=== PATIENT | female | born 1950 | race Caucasian/White ===

== ENCOUNTER 2018-03-26 11:51 | Outpatient (REF) | payer MEDICARE, BC, SELFPAY | END 2018-03-26 12:11 | LOC: NCHCN 11:51 | PROVIDERS: Visit Provider Internal Medicine | DX: I10 Essential (primary) hypertension (principal); E11.9 Type 2 diabetes mellitus without complications; E03.9 Hypothyroidism, unspecified; E78.5 Hyperlipidemia, unspecified; Z53.8 Procedure and treatment not carried out for other reasons | CPT/HCPCS: 80048; 80061; 83721; 82043; 82570; 83036; 84443 ==

== ENCOUNTER 2018-03-31 13:08 | Outpatient (REF) | payer MEDICARE, BC, SELFPAY ==
[2018-03-31 22:20] LABS: COMMENT (LAB VIEW ONLY) 314.45 mg/dL
== END 2018-03-31 13:28 ==
LOC: NCHCN 13:08
PROVIDERS: Visit Provider Internal Medicine
DX: E11.9 Type 2 diabetes mellitus without complications (principal); I10 Essential (primary) hypertension; E78.5 Hyperlipidemia, unspecified
CPT/HCPCS: 80048; 80061; 83721; 82043; 82570; 83036; 84443

== ENCOUNTER 2018-04-03 21:20 | Outpatient (REF) | payer MEDICARE, BC, SELFPAY ==
[2018-04-03 22:11] LABS: Anion Gap 6.8 mmol/L (3-11); BUN 22 mg/dL (7-18); CO2 28.2 mmol/L (21.0-32.0); CREATININE 1.47 mg/dL (0.55-1.02); Calcium 9.5 mg/dL (8.5-10.1); Chloride 101 mmol/L (98-107); Cholesterol 167 mg/dL (50-200); Estimated GFR 35.24 (mL/min/1.73m2); Glucose 212 mg/dL (70-100); HDL Cholesterol 53 mg/dL (40-60); LDL CHOLESTEROL 93 mg/dL (<100); Sodium 136 mmol/L (136-145); TSH 1.86 uIU/mL (0.358-3.74); Triglyceride 89 mg/dL (30-150)
== END 2018-04-03 21:40 ==
LOC: NCHCN 21:20
PROVIDERS: Visit Provider Internal Medicine
DX: I10 Essential (primary) hypertension (principal); E11.9 Type 2 diabetes mellitus without complications; E03.9 Hypothyroidism, unspecified; E78.5 Hyperlipidemia, unspecified
CPT/HCPCS: 80048; 80061; 83721; 84443

== ENCOUNTER 2019-12-25 19:36 | Outpatient (REF) | payer MEDICARE, BC, SELFPAY ==
[2019-12-25 22:13] LABS: Anion Gap 3.2 mmol/L (3-11); BUN 17 mg/dL (7-18); CO2 28.8 mmol/L (21.0-32.0); CREATININE 1.28 mg/dL (0.55-1.02); Calcium 9.4 mg/dL (8.5-10.1); Calculated LDL 107 mg/dL (<100); Chloride 102 mmol/L (98-107); Cholesterol 171 mg/dL (<200); Estimated GFR 41.11 (mL/min/1.73m2); Glucose 234 mg/dL (74-106); HDL Cholesterol 50 mg/dL (40-60); Potassium 4.8 mmol/L (3.5-5.1); Sodium 134 mmol/L (136-145); TSH 1.82 uIU/mL (0.36-3.74); Triglyceride 73 mg/dL (<150)
== END 2019-12-25 19:56 ==
LOC: NCHCN 19:36
PROVIDERS: Visit Provider Internal Medicine
DX: E03.9 Hypothyroidism, unspecified (principal); I10 Essential (primary) hypertension; E78.5 Hyperlipidemia, unspecified; E11.9 Type 2 diabetes mellitus without complications; N18.30 Chronic kidney disease, stage 3 unspecified
CPT/HCPCS: 80048; 80061; 84443

== ENCOUNTER 2021-09-19 18:07 | Outpatient (REF) | payer MEDICARE, BC, SELFPAY ==
[2021-09-19 20:57] LABS: Hemoglobin A1C 8.5 % (<5.7)
[2021-09-19 21:06] LABS: TSH 2.17 uIU/mL (0.36-3.74)
[2021-09-20 22:25] LABS: Vitamin B12 669 pg/mL (193-986)
[2021-09-21 19:51] LABS: Folate 5.9 ng/mL (See Note)
== END 2021-09-19 18:08 | disposition home or self-care (01) ==
LOC: NCHCN 18:07
PROVIDERS: Visit Provider Internal Medicine
DX: E11.9 Type 2 diabetes mellitus without complications (principal); F33.2 Major depressive disorder, recurrent severe without psychotic features; E03.9 Hypothyroidism, unspecified; R41.3 Other amnesia; M25.551 Pain in right hip
CPT/HCPCS: 82607; 82746; 83036; 84443

== ENCOUNTER 2022-02-01 18:37 | Outpatient (REF) | payer MEDICARE, BC, SELFPAY ==
[2022-02-01 21:29] LABS: TSH (W/Ref FT4) 1.16 uIU/mL (0.36-3.74)
== END 2022-02-01 18:38 | disposition home or self-care (01) ==
LOC: NCHCN 18:37
PROVIDERS: Visit Provider Nurse Practitioner Family
DX: E03.9 Hypothyroidism, unspecified (principal)
CPT/HCPCS: 84443

== ENCOUNTER 2022-02-14 18:06 | Inpatient (IN) | payer MEDICARE, BC, SELFPAY ==
[2022-02-14] VITALS (20 sets, daily range): BP systolic 121–137; BP diastolic 54–69; PULSE 86–101; RESP 14–23; TEMP 36.5; O2SAT 94–97
--- NOTE | 2022-02-14 18:31 | ED.GENADUL_ITS ---
Discharge Plan Disposition Patient Disposition: Admit to [facility] Condition: Stable Discharge Details Chief Complaint: Abd Prob Clinical Impression: Biliary colic, Acalculous cholecystitis Primary Care Provider: Cornell Burger ED Provider: Chidi Alfredo Home Meds and New Rx's Prescriptions: Continued atorvastatin 40 mg Tablet 40 mg PO DAILY atorvastatin 40 mg Tablet 40 mg PO DAILY venlafaxine 75 mg Tablet 75 mg PO BID lisinopril 20 mg Tablet 20 mg PO DAILY amlodipine 2.5 mg Tablet 2.5 mg PO DAILY levothyroxine 50 mcg Tablet 50 mcg PO DAILY aspirin 81 mg Tablet 81 mg PO DAILY letrozole 2.5 mg Tablet 2.5 mg PO DAILY Januvia 50 mg Tablet 50 mg PO DAILY Invokana 300 mg Tablet 300 mg PO DAILY Discharge Instructions Instructions: Abdominal Pain (ED) Additional Instructions: Your CAT scan showed evidence of a gallstone. You will require a follow-up ultrasound which may be performed tomorrow morning. Please do not eat breakfast tomorrow. Return approximately 8 AM for recheck and for ultrasound of your gallbladder. Home to rest this evening. Medical Decision Making <Scotty Alaniz MD - Last Filed: 02/14/22 23:03> This is a 71-year-old female who presents from home via EMS. She reports intermittent episodes of nausea and vomiting for weeks on and and now with left lower quadrant abdominal pain today. No bloody stool or emesis, no fever, no known sick contacts. States this is happened to her in the past. Patient arrives to ER well-appearing, afebrile, note of elevated heart rate at 100 at triage. Differential diagnosis is broad including dehydration, electrolyte abnormality, intra-abdominal process such as diverticulitis. Patient had IV access established, screening labs obtained, she is given fluids and offered antiemetic. White blood cell count is elevated at 12.4, hematocrit is 38 and platelets 285. Sodium slightly low at 131, potassium 4.1, chloride 98, bicarb 26, BUN 33, creatinine 1.2. Lipase within normal limits and troponin negative. Slight elevation of AST at 64, ALT 84, total bili 0.3. CT imaging obtained: Moderate hiatal hernia noted. No acute bowel pathology demonstrated. L1 compression fracture noted. Possible fatty infiltration of the liver. Moderate gallbladder distention with gallstones including a 12 mm peripherally calcified stone in the region of the gallbladder neck. There is a suggestion of gallbladder wall thickening versus artifact. Patient is improved with no further complaint of pain or nausea. The patient requires a follow-up ultrasound to rule out cholecystitis. As tomorrow is the and no ultrasound services are available tonight, and the patient has no available transportation tonight, I will sign out to Dr. Antunez with plans for ultrasound in the morning. <Leslie Antunez, DO - Last Filed: 02/15/22 01:48> Dr. Alaniz This is a 71-year-old female who presents from home via EMS. She reports intermittent episodes of nausea and vomiting for weeks on and and now with left lower quadrant abdominal pain today. No bloody stool or emesis, no fever, no known sick contacts. States this is happened to her in the past. Patient arrives to ER well-appearing, afebrile, note of elevated heart rate at 100 at triage. Differential diagnosis is broad including dehydration, electrolyte abnormality, intra-abdominal process such as diverticulitis. Patient had IV access established, screening labs obtained, she is given fluids and offered antiemetic. White blood cell count is elevated at 12.4, hematocrit is 38 and platelets 285. Sodium slightly low at 131, potassium 4.1, chloride 98, bicarb 26, BUN 33, creatinine 1.2. Lipase within normal limits and troponin negative. Slight elevation of AST at 64, ALT 84, total bili 0.3. CT imaging obtained: Moderate hiatal hernia noted. No acute bowel pathology demonstrated. L1 compression fracture noted. Possible fatty infiltration of the liver. Moderate gallbladder distention with gallstones including a 12 mm peripherally calcified stone in the region of the gallbladder neck. There is a suggestion of gallbladder wall thickening versus artifact. Patient is improved with no further complaint of pain or nausea. The patient requires a follow-up ultrasound to rule out cholecystitis. As tomorrow is the and no ultrasound services are available tonight, and the patient has no available transportation tonight, I will sign out to Dr. Antunez with plans for ultrasound in the morning. Dr. Antunez 2300 --please see Dr. Alaniz's note for initial presentation, exam and plan. Case endorsed to monitor overnight with plan for ultrasound in the morning once ultrasound available. 0800 --no events overnight. Case endorsed to Dr. Chago Alfredo to follow-up on ultrasound results and final disposition. <Chidi Alfredo MD - Last Filed: 02/15/22 11:15> Dr. Alaniz This is a 71-year-old female who presents from home via EMS. She reports intermittent episodes of nausea and vomiting for weeks on and and now with left lower quadrant abdominal pain today. No bloody stool or emesis, no fever, no known sick contacts. States this is happened to her in the past. Patient arrives to ER well-appearing, afebrile, note of elevated heart rate at 100 at triage. Differential diagnosis is broad including dehydration, electrolyte abnormality, intra-abdominal process such as diverticulitis. Patient had IV access established, screening labs obtained, she is given fluids and offered antiemetic. White blood cell count is elevated at 12.4, hematocrit is 38 and platelets 285. Sodium slightly low at 131, potassium 4.1, chloride 98, bicarb 26, BUN 33, creatinine 1.2. Lipase within normal limits and troponin negative. Slight elevation of AST at 64, ALT 84, total bili 0.3. CT imaging obtained: Moderate hiatal hernia noted. No acute bowel pathology demonstrated. L1 compression fracture noted. Possible fatty infiltration of the liver. Moderate gallbladder distention with gallstones including a 12 mm peripherally calcified stone in the region of the gallbladder neck. There is a suggestion of gallbladder wall thickening versus artifact. Patient is improved with no further complaint of pain or nausea. The patient requires a follow-up ultrasound to rule out cholecystitis. As tomorrow is the and no ultrasound services are available tonight, and the patient has no available transportation tonight, I will sign out to Dr. Antunez with plans for ultrasound in the morning. Dr. Antunez 2299 --please see Dr. Alaniz's note for initial presentation, exam and plan. Case endorsed to monitor overnight with plan for ultrasound in the morning once ultrasound available. 0800 --no events overnight. Case endorsed to Dr. Chago Alfredo to follow-up on ultrasound results and final disposition. Dr. Alfredo 01/2411: 12 patient resting comfortably no acute distress. Abdomen soft nontender nondistended no further vomiting. Hemodynamically stable. Evidence of gallbladder wall thickening with stone likely at the neck of gallbladder, mild elevation in AST ALT and alk phos however normal bilirubin, white count g reater than 12, discussed case with Dr. Luong of general surgery who will admit patient for cholecystectomy. Will start on Zosyn, maintenance fluids, will keep NPO. Given patient's baseline dementia her son and [id number] are acting as medical decision makers and have given consent to treatment. We have discussed goals of care with them as well and she is full code Sign Out No HPI <Scotty Alaniz MD - Last Filed: 02/14/22 23:03> General Mode of arrival: ambulatory . Date/Time Provider Initiated Documentation: 02/14/22 18:22 . Limitations to Documentation: no limitations . Information obtained by: patient . History of Present Illness 71 year old F presents to the emergency department with the chief complaint of Left lower quadrant pain, recurrent, described as moderate and similar to prior episodes, Quality is described as dull, and is localized to the abdomen and left. Patient reports no radiation. Patient started experiencing this day(s) and it has been intermittent. No relieving factors improve symptom(s), No exacerbating factors reported . Patient notes nausea/vomiting; denies confusion, chest pain, diaphoresis, fever/chills, shortness of breath, syncope and weakness. Patient did receive the following treatments prior to arrival, none Related Data Home Medications Medication Instructions Recorded Confirmed amlodipine 2.5 mg tablet 2.5 mg PO DAILY 02/14/22 02/14/22 aspirin 81 mg tablet 81 mg PO DAILY 02/14/22 02/14/22 atorvastatin 40 mg tablet 40 mg PO DAILY 02/14/22 02/14/22 atorvastatin 40 mg tablet 40 mg PO DAILY 02/14/22 02/14/22 canagliflozin 300 mg tablet 300 mg PO DAILY 02/14/22 02/14/22 (Invokana) letrozole 2.5 mg tablet 2.5 mg PO DAILY 02/14/22 02/14/22 levothyroxine 50 mcg tablet 50 mcg PO DAILY 02/14/22 02/14/22 lisinopril 20 mg tablet 20 mg PO DAILY 02/14/22 02/14/22 sitagliptin phosphate 50 mg tablet 50 mg PO DAILY 02/14/22 02/14/22 (Januvia) venlafaxine 75 mg tablet 75 mg PO BID 02/14/22 02/14/22 Allergies Allergy/AdvReac Type Severity Reaction Status Date / Time enviornmental Allergy Mild head Uncoded 02/14/22 21:03 congestion General Stated Complaint: Abd Prob LELAND: 3 Review of Systems <Scotty Alaniz MD - Last Filed: 02/14/22 23:03> Narrative: States recent evaluation for same at [facility]. No fever, no diarrhea. 7 systems reviewed and otherwise negative PFSH <Scotty Alaniz MD - Last Filed: 02/14/22 23:03> All Active Problems (Updated 02/15/22 @ 11:15 by Chidi Alfredo MD) Biliary colic (Acute) Acalculous cholecystitis (Acute) Social History Smoking/Tobacco Use Status: Never Smoking risk assessment performed?: Yes Alcohol Intake: never Drug use: Never Substance use type: does not use Do you feel safe at home: Yes Exam <Scotty Alaniz MD - Last Filed: 02/14/22 23:03> Narrative Exam Narrative: GEN: awake, alert, oriented 3. Pleasant, well groomed, interactive. HEAD: Normocephalic, atraumatic ENT: Mucous membranes moist, oropharynx unremarkable, External ear exam unremarkable EYES: PERRL, EOMI NECK: Full ROM, no EUGENIO, no menigismus CHEST/RESP: Nontender, clear to auscultation bilateral, no wheeze/rhonchi/rales CARDIOVASCULAR: RRR, no murmur, rub adin. 2+ Rad pulse bilateral ABDOMEN: Soft, left lower quadrant tenderness to palpation, no rebound, no mass. +Bowel sounds EXT: Full ROM, no edema, no rash Neuro: Grossly normal neurologic exam, conversant, interactive. Psych: Speech fluent, thoughts congruent, affect normal Course <Scotty Alaniz MD - Last Filed: 02/14/22 23:03> Vital Signs Vital signs: Vital Signs Temperature 36.5 C 02/14/22 18:06 Pulse 100 H 02/14/22 18:06 Respiratory Rate 18 02/14/22 18:06 Blood Pressure 137/56 L 02/14/22 18:06 Temperature 36.5 C 02/14/22 18:06 Temperature Source Tympanic 02/14/22 18:06 Pulse 100 H 02/14/22 18:06 Respiratory Rate 18 02/14/22 18:06 Blood Pressure 137/56 L 02/14/22 18:06 Blood Pressure Position Supine 02/14/22 18:06 Oxygen Delivery Method Room Air 02/14/22 18:06 Oxygen Flow Rate 0 02/14/22 18:06 Pain Level 6 02/14/22 18:06 Sign Out <Scotty Alaniz MD - Last Filed: 02/14/22 23:03> Sign Out Data: Sign Out Comment: US In AM Last updated by Scotty Alaniz MD at 02/14/22 23:03 Sign Out Comment: No events overnight. Follow-up on ultrasound to be performed this morning. Last updated by Leslie Antunez DO at 02/15/22 05:45
[2022-02-14 19:58] LABS: Abs Immature Grans 0.06 10^3/uL (0.0-0.06); Absolute Basophil Count 0.05 10^3/uL (0.0-0.2); Absolute Lymphocyte Count 3.35 10^3/uL (1.2-3.4); Absolute Monocyte Count 1.05 10^3/uL (0.1-0.8); Basophils % 0.4; Eosinophils % 2.3; HCT 38.6 % (36.0-46.0); HGB 12.6 g/dL (11.2-15.7); Immature Grans % 0.5; MCH 29.6 pg (27.0-33.0); MCHC 32.6 % (32.0-36.0); MCV 91 fL (80-95); MPV 10.2 fL (8.0-11.0); Monocytes % 8.5; Neutrophils % 61.3; Platelet Count 285 10^3/uL (130-400); RBC 4.26 10^6/uL (3.93-5.22); RDW-SD 49.6 fL
[2022-02-14 19:59] LABS: Absolute Eosinophil Count 0.29 10^3/uL (0.0-0.7)
--- NOTE | 2022-02-14 20:00 | DI.CT_ITS ---
Exam(s) CT ABDOMEN PELVIS W EXAM: CT ABDOMEN PELVIS W INDICATION: LLQ pain, wait for CR. COMPARISON: US US ABDOMEN LIMITED from 02/15/2022 TECHNIQUE: FINDINGS: CT examination of the abdomen and pelvis was performed with intravenous infusion of 100 cc of Omnipaq ue 350. Note is made of an L1 compression fracture which is of uncertain age but may be subacute, acute fract ure not excluded. There is retropulsion of posterior superior aspect of L1 vertebral body into the s nicolette canal by approximately 5 millimeters. There is moderate loss of height of the vertebral body a nteriorly. Findings are consistent with a burst fracture, probably unstable if acute. Please correl ate clinically regarding any recent injury or prior imaging period Images obtained through the lung bases are unremarkable. The liver shows a probable steatosis and mildly nodular contour suggesting cirrhosis period. There is cholelithiasis and gallbladder wall thickening with question slight pericholecystic fluid co llection, ultrasound correlation suggested to evaluate for cholecystitis period. Pancreas appears normal. Spleen is unremarkable in appearance. Adrenals appear normal. The right kidney is atrophic. Left kidney is hypertrophied but otherwise unremarkable unremarkable w ith no evidence of hydronephrosis, nephrolithiasis, or renal mass.. Urinary bladder unremarkable. Abdominal aorta is of normal diameter and no major vascular abnormality is seen. No abdominal wall hernia. No abdominal or pelvic adenopathy. [employer] structures appear intact. Appendix is normal. No evidence of diverticulitis or bowel obstruction. IMPRESSION: The appearance of the gallbladder raises the possibility of cholecystitis. Burst fracture of L1 vertebral body, uncertain age, please correlate clinically. RADIATION DOSE DELIVERED: Total DLP Total DLP RADIATION OPTIMIZATION: All CT scans at this facility use at least one of these dose optimization te chniques: automated exposure control; mA and/or kV adjustment per patient size (includes targeted exa ms where dose is matched to clinical indication); or iterative reconstruction.
[2022-02-14 20:03] LABS: Bilirubin Negative (Negative); Blood Negative (Negative); Clarity Clear (Clear); Glucose 500 mg/dL (Negative); Ketones Negative (Negative); Leukocyte Esterase Negative (Negative); Nitrite Negative (Negative); Specific Gravity 1.025 (1.005-1.025); Urobilinogen 0.2 EU/dL (Up TO 0.2)
[2022-02-14 20:26] LABS: ALT 84 U/L (14-59); AST 64 U/L (15-37); Albumin 3.3 g/dL (3.4-5.0); Alkaline Phosphatase 141 U/L (46-116); Anion Gap 6.6 mmol/L (3-11); BUN 33 mg/dL (7-18); Bilirubin, Total 0.3 mg/dL (0.2-1.0); CO2 26.4 mmol/L (21.0-32.0); CREATININE 1.2 mg/dL (0.55-1.02); Calcium 9.9 mg/dL (8.5-10.1); Chloride 98 mmol/L (98-107); Glucose 156 mg/dL (74-106); Lipase 300 U/L (73-393); Magnesium 2.2 mg/dL (1.8-2.4); Potassium 4.1 mmol/L (3.5-5.1); Sodium 131 mmol/L (136-145); Total Protein 8.6 g/dL (6.4-8.2); Troponin I < 50 ng/L (<or=60)
[2022-02-14] MEDS: Omnipaque 350 MG/ML 100 ML BTL IJ (20:54)
--- NOTE | 2022-02-14 21:44 | DI.VRAD_ITS ---
PROCEDURE INFORMATION: Exam: CT Abdomen And Pelvis With Contrast Exam date and time: 02/14/2022 8:42 PM Age: 71 years old Clinical indication: Vomiting and other: Llq pain TECHNIQUE: Imaging protocol: Computed tomography of the abdomen and pelvis with contrast. Contrast material: OMNIPAQUE 350; Contrast volume: 100 ml; Contrast route: INTRAVENOUS (IV); COMPARISON: No relevant prior studies available. FINDINGS: Diaphragm: Moderate-sized hiatal hernia. Liver: Possible fatty infiltration of the liver, difficult to confidently diagnose by CT imaging after administration of intravenous contrast. Mild nodularity of hepatic contour, nonspecific but commonly seen in the setting of cirrhotic change. Gallbladder and bile ducts: Moderate gallbladder distention with gallstones including a 12 mm peripherally calcified stone in the region of the gallbladder neck/cystic duct. Suggestion of gallbladder wall thickening versus artifact from motion. No intrahepatic or extrahepatic biliary dilatation. Pancreas: Normal appearing pancreas. Spleen: Normal appearing spleen. Adrenal glands: Normal appearing adrenal glands. Kidneys and ureters: Renal asymmetry with the right kidney measuring 5.3 cm craniocaudal dimension and the left kidney measuring 11.7 cm craniocaudal dimension suggesting a prior or chronic right-sided renal insult. Otherwise normal-appearing kidneys. No hydronephrosis. No obstructing ureteral stones. Stomach and bowel: Stomach moderately distended with fluid and gas. No small bowel dilatation to suggest obstruction. Normal-appearing colon. No evidence of diverticulitis or colitis. Appendix: Normal appendix, best demonstrated by the coronal series. Intraperitoneal space: No gross ascites or free air. Vasculature: Normal caliber abdominal aorta. Lymph nodes: No pathologically enlarged mesenteric, retroperitoneal, or pelvic sidewall lymph nodes. Urinary bladder: Urinary bladder partially collapsed but grossly unremarkable, as seen. Reproductive: Normal-appearing uterus. Ovaries partially obscured but normal in size. Bones/joints: L1: Compression/burst type fracture with a Schmorl's node in the inferior endplate, moderate loss of central vertebral height and fracture extension through the posterior vertebral wall with posterior displacement of a portion of the posterior vertebral wall by approximately 6 mm resulting in mild-moderate central canal narrowing and moderate left-sided foraminal narrowing, uncertain chronicity with an appearance suggesting an acute-subacute fracture or acute-subacute fracture component. Otherwise, no acute fracture seen among the bones of the abdomen or pelvis. Moderate-severe discogenic degeneration at L5-S1 with severe bilateral foraminal narrowing and partial flattening of the L5 nerve roots, bilaterally. Moderate-severe degeneration of the right hip joint from osteoarthritis with loss of joint space, superior migration of the joint, large resorptive cysts, and large marginal osteophytes. Soft tissues: No significant ventral or inguinal hernia. IMPRESSION: 1. Moderate-sized hiatal hernia. No acute bowel pathology demonstrated. 2. Compression/burst type fracture at L1, as described, with an appearance suggesting an acute-subacute fracture or at least an acute-subacute fracture component. Clinical correlation and comparison with prior imaging are recommended. 3. Possible fatty infiltration of the liver, difficult to confidently diagnose by CT imaging after administration of intravenous contrast.Mild nodularity of hepatic contour. Although nonspecific, cirrhotic change commonly produces this appearance. 4. Moderate gallbladder distention with gallstones including a 12 mm peripherally calcified stone in the region of the gallbladder neck/cystic duct. Suggestion of gallbladder wall thickening versus artifact from motion. Clinical correlation is recommended to assess the possibility of acute cholecystitis. No intrahepatic or extrahepatic biliary dilatation. Dictated and Authenticated by: Gage Turner MD. Ordering:CAMILA Fajardo MD
[2022-02-15] VITALS (7 sets, daily range): BP systolic 105–129; BP diastolic 52–74; PULSE 74–80; RESP 16; TEMP 36.3–36.8; O2SAT 97–99
--- NOTE | 2022-02-15 01:57 | NUR.NOTE ---
Nursing Note: Pt lying in bed, eyes closed, respirations even and unlabored at 15. No distress noted.
--- NOTE | 2022-02-15 02:30 | NUR.NOTE ---
Nursing Note: Pt up to bedsiee commode. No distress noted. Pt denies any other needs at this time. Call button within reach.
--- NOTE | 2022-02-15 04:20 | NUR.NOTE ---
Nursing Note: Pt up to bedside commode. Denies any other needs at this time.
--- NOTE | 2022-02-15 06:11 | NUR.NOTE ---
Nursing Note: Pt lying in bed, eyes closed, respirations even and unlabored at 16. No distress noted.
--- NOTE | 2022-02-15 08:19 | DI.US_ITS ---
Exam(s) US ABDOMEN LIMITED EXAM: US ABDOMEN LIMITED CLINICAL HISTORY: nausea, abnl GB on CT TECHNIQUE: Ultrasound performed using standard protocol. COMPARISON: No exams were available for comparison FINDINGS: Ultrasound examination of the right upper quadrant was performed. Liver is unremarkable in appearanc e. Pancreas appears intact as visualized. Portal venous flow is hepatopetal. There are multiple gallstones. Gallbladder wall is thickened at 4+ millimeters period there is no pe richolecystic fluid collection and there is a negative sonographic Figueroa sign period biliary ducts a re nondilated. Unremarkable appearance of right kidney . IMPRESSION: Cholelithiasis with gallbladder wall thickening, in the appropriate clinical setting cholecystitis should be considered. DATA REPOSITORY:
[2022-02-15] MEDS: Normal Saline 1,000 ML 125 ML IV (09:10)
--- NOTE | 2022-02-15 10:37 | DI.VRAD_ITS ---
Addendum created by Olivia Jose MD on 02/15/2022 10:38:42 AM EST: THIS REPORT CONTAINS FINDINGS THAT MAY BE CRITICAL TO PATIENT CARE. The findings were verbally communicated via telephone conference with Dr. Alfredo at 10:38 AM EST on 02/15/2022. The findings were acknowledged and understood. Initial report created on 02/15/2022 10:36:26 AM EST: PROCEDURE INFORMATION: Exam: US Abdomen, Limited; Right Upper Quadrant Exam date and time: 02/15/2022 8:21 AM Age: 71 years old Clinical indication: Abdominal pain TECHNIQUE: Imaging protocol: Real time ultrasound of the abdomen with image documentation. Limited exam focused on the right upper quadrant. COMPARISON: CT ABDOMEN PELVIS W 02/14/2022 8:42 PM FINDINGS: Liver: There is a diffuse increase in hepatic parenchymal echogenicity, consistent with fatty infiltration. Liver 13.4 cm Gallbladder: Negative sonographic Figueroa sign. Gallbladder wall 4.2 mm. Large gallstones in the gallbladder. 1.7 cm. Biliary ducts: Common bile duct 7 mm. Pancreas: Visualized pancreas is unremarkable. Right kidney: Right kidney 5.95 cm . This is decreased in size and may indicate renal failure. Portal venous: Hepatopetal flow in the portal vein IMPRESSION: 1. Gallbladder wall 4.2 mm. 2. Large gallstones in the gallbladder. 1.7 cm. 3. Common bile duct 7 mm. Findings consistent with acute cholecystitis 4. Right kidney 5.95 cm . This is decreased in size and may indicate renal failure. Dictated and Authenticated by: Olivia Jose MD. Ordering:CAMILA Fajardo MD
[2022-02-15] MEDS: PIPERACILLIN/TAZO 3.375 GM in Normal Saline 50 ML IVPB ×3 (11:25→23:59)
[2022-02-15 11:45] LABS: Source Nasal/Nares
[2022-02-15 12:17] LABS: COVID-19 PCR Negative (Negative)
--- NOTE | 2022-02-15 13:23 | HPE_ITS ---
Date of service: 02/15/22 Time of Service: 12:30 Assessment and Plan Assessment and plan (1) Acute cholecystitis due to biliary calculus: Status: Acute Assessment and plan: 71 yo woman with imaging showing gallstones and gallbladder wall thickening consistent with acute cholecystitis radiographically. She is HD stable. Her abdomen is grossly benign, but the tenderness she does have is focal in the RUQ. Her LFTs are mildly elevated with alk phos being up but bili normal. She has a leukocytosis. OVerall, her clinical picture is that of acute cholecystitis causing nausea and vomiting. I recommend admitting to the hospital for IV hydration, antibiotics and we'll remove her gallbladder first thing in the morning. I had a long and detailed discussion with her about biliary anatomy and fu nction, the reason her gallstones are causing trouble and the management recommendations. We talked about bile duct injury, bile leakage and possible alternative diagnoses for her symptoms such as viral gi bug or PUD. She understands the risk, the indications and the benefits to removing her gal lbladder and wishes to proceed. She wants me to inform her family, but she doesn't know how to reach any of them. If they come to the hospital or we get phone numbers for them, I will let them know our plan. History of Present Illness History of Present Illness Chief Complaint: N/V for 4 days Narrative: 71 yo woman has been in her usual state of health until about 4 days ago when she says she just started having nausea and vomiting without obvious cause. She hasn't been around anyone sick. She denies significant abdominal pain but chose to call EMS when it wasn't getting better in order to be evaluated at the hospital. In ED she was found to have imaging and labwork consistent with acute cholecystitis. At the bedside, I discussed symptoms with her and she continues to deny abdominal pain but still feels under the weather. She has had breast surgeyr in the past, but denies any intra-abdominal surgery. Her chart states she has had an oopherectomy . . . She denies family history of bleeding or blood clots. She lives alone and makes her own medical decisions. Her medical history is significant for DM, HTN, depression and suicidal ideas. PFSH All Active Problems (Updated 02/15/22 @ 13:48 by Ernie Luong MD) Acute cholecystitis due to biliary calculus (Acute) Biliary colic (Acute) Acalculous cholecystitis (Acute) Social History Smoking/Tobacco Use Status: Never Smoking risk assessment performed?: Yes Alcohol Intake: never Drug use: Never Substance use type: does not use Do you feel safe at home: Yes Meds Allergies and Home Medications Allergies Allergy/AdvReac Type Severity Reaction Status Date / Time enviornmental Allergy Mild head Uncoded 02/14/22 21:03 congestion Home Medications Medication Instructions Recorded Confirmed Type amlodipine 2.5 mg tablet 2.5 mg PO DAILY 02/14/22 02/14/22 History aspirin 81 mg tablet 81 mg PO DAILY 02/14/22 02/14/22 History atorvastatin 40 mg tablet 40 mg PO DAILY 02/14/22 02/14/22 History atorvastatin 40 mg tablet 40 mg PO DAILY 02/14/22 02/14/22 History canagliflozin 300 mg tablet 300 mg PO DAILY 02/14/22 02/14/22 History (Invokana) letrozole 2.5 mg tablet 2.5 mg PO DAILY 02/14/22 02/14/22 History levothyroxine 50 mcg tablet 50 mcg PO DAILY 02/14/22 02/14/22 History lisinopril 20 mg tablet 20 mg PO DAILY 02/14/22 02/14/22 History sitagliptin phosphate 50 mg tablet 50 mg PO DAILY 02/14/22 02/14/22 History (Januvia) venlafaxine 75 mg tablet 75 mg PO BID 02/14/22 02/14/22 History Exam Narrative Exam Narrative: Gen: nontoxic and interactive. In no distress or discomfort. Neuro: AxOx 3 Psych: Appropriate mood and affect. Reasonable insight and understanding. Abdomen: Soft, nondistended, minimal tenderness. No escobar sign, but RUQ is tender to deep palpation. Other 3Qs are not tender. No obvious surgical scars on abdomen. Results Labs Result diagrams: 02/14/22 19:53 02/14/22 19:53 Labs: Laboratory Results - last 24 hr 02/14/22 02/14/22 02/14/22 19:50 19:53 19:53 WBC 12.40 H RBC 4.26 Hgb 12.6 Hct 38.6 MCV 91 MCH 29.6 MCHC 32.6 RDW 15.0 H Plt Count 285 MPV 10.2 Immature Gran % 0.5 Neutrophils % 61.3 Lymphocytes % 27.0 Monocytes % 8.5 Eosinophils % 2.3 Basophils % 0.4 Nucleated RBC % 0.0 Absolute Neutrophils 7.60 H Absolute Lymphocytes 3.35 Absolute Monocytes 1.05 H Absolute Eosinophils 0.29 Absolute Basophils 0.05 Sodium 131 L Potassium 4.1 Chloride 98 Carbon Dioxide 26.4 Anion Gap 6.6 BUN 33 H Creatinine 1.2 H Est GFR (CKD-EPI 2020) 47.80 Glucose 156 H Calcium 9.9 Magnesium 2.2 Total Bilirubin 0.3 AST 64 H ALT 84 H Alkaline Phosphatase 141 H Troponin I < 50 Total Protein 8.6 H Albumin 3.3 L Lipase 300 Urine Color Yellow Urine Clarity Clear Urine pH 6.0 Ur Specific [place] 1.025 Urine Protein Negative Urine Ketones Negative Urine Blood Negative Urine Nitrite Negative Urine Bilirubin Negative Urine Urobilinogen 0.2 Ur Leukocyte Esterase Negative Urine Glucose 500 H COVID-19 Source SARS-CoV-2 (PCR) 02/14/22 02/15/22 21:37 11:10 WBC RBC Hgb Hct MCV MCH MCHC RDW Plt Count MPV Immature Gran % Neutrophils % Lymphocytes % Monocytes % Eosinophils % Basophils % Nucleated RBC % Absolute Neutrophils Absolute Lymphocytes Absolute Monocytes Absolute Eosinophils Absolute Basophils Sodium Potassium Chloride Carbon Dioxide Anion Gap BUN Creatinine Est GFR (CKD-EPI 2020) Glucose Calcium Magnesium Total Bilirubin AST ALT Alkaline Phosphatase Troponin I Cancelled Total Protein Albumin Lipase Urine Color Urine Clarity Urine pH Ur Specific [place] Urine Protein Urine Ketones Urine Blood Urine Nitrite Urine Bilirubin Urine Urobilinogen Ur Leukocyte Esterase Urine Glucose COVID-19 Source Nasal/Nares SARS-CoV-2 (PCR) Negative Last Vital Signs Temp 98.2 F 02/15/22 12:32 Pulse 77 02/15/22 12:32 Resp 16 02/15/22 12:32 BP 129/73 02/15/22 12:32 Pulse Ox 97 02/15/22 12:32
[2022-02-15] MEDS: Lactated Ringers 1,000 ML 125 ML IV (14:29)
[2022-02-15] MEDS: Normal Saline Flush 10 ML SYR IVP ×3 (19:33→23:59)
[2022-02-15] MEDS: Heparin 5,000 UNITS/ML VIAL 5000 UNITS SC (19:34)
[2022-02-16] VITALS (14 sets, daily range): BP systolic 75–182; BP diastolic 54–78; PULSE 55–78; RESP 14–18; TEMP 35–36.5; O2SAT 95–99; BMI 23.8
[2022-02-16] MEDS: Lactated Ringers 1,000 ML 125 ML IV ×2 (01:11→17:02)
[2022-02-16] MEDS: PIPERACILLIN/TAZO 3.375 GM in Normal Saline 50 ML IVPB ×3 (05:54→17:54)
--- NOTE | 2022-02-16 06:36 | W.ANESPRE ---
General Info Date of Service Date Performed: 02/16/22 Height: 5 ft 5 in Weight: 64.864 kg Body Mass Index (BMI): 23.8 Meds Allergies and Home Medications Allergies Allergy/AdvReac Type Severity Reaction Status Date / Time enviornmental Allergy Mild head Uncoded 02/14/22 21:03 congestion Home Medication Medication Instructions Recorded amlodipine 2.5 mg tablet 2.5 mg PO DAILY 02/14/22 aspirin 81 mg tablet 81 mg PO DAILY 02/14/22 atorvastatin 40 mg tablet 40 mg PO DAILY 02/14/22 atorvastatin 40 mg tablet 40 mg PO DAILY 02/14/22 canagliflozin 300 mg tablet 300 mg PO DAILY 02/14/22 (Invokana) letrozole 2.5 mg tablet 2.5 mg PO DAILY 02/14/22 levothyroxine 50 mcg tablet 50 mcg PO DAILY 02/14/22 lisinopril 20 mg tablet 20 mg PO DAILY 02/14/22 sitagliptin phosphate 50 mg tablet 50 mg PO DAILY 02/14/22 (Januvia) venlafaxine 75 mg tablet 75 mg PO BID 02/14/22 Current Visit Medications: Current Medications Generic Name Dose Route Start Last Admin Trade Name Freq PRN Reason Stop Dose Admin Acetaminophen 1,000 mg 02/15/22 14:00 02/16/22 00:44 Acetaminophen 500 Mg Tab PO Not Given Q6H [facility] Heparin Sodium (Porcine) 5,000 units 02/15/22 20:00 02/15/22 19:34 Heparin 5,000 Units/Ml Vial SC 5,000 units Q12H AZALIA Administration Sodium Chloride 500 mls @ 0 mls/hr 02/15/22 11:16 Saline 500ml Bag IV PRN PRN As Directed Ringer's Solution 1,000 mls @ 125 mls/hr 02/15/22 14:00 02/16/22 01:11 IV 125 mls/hr INFUSION AZALIA Administration Piperacillin Sod/Tazobactam 50 mls @ 100 mls/hr 02/15/22 18:00 02/16/22 05:54 Sod 3.375 gm/ Sodium Chloride IVPB 100 mls/hr Q6H AZALIA Administration Protocol IV Miscellaneous Supplies 1 each 02/14/22 18:45 Iv Access IV DIRECTED [facility] IV Miscellaneous Supplies 1 each 02/15/22 11:30 Iv Access IV DIRECTED AZALIA Iohexol 100 ml 02/14/22 21:00 02/14/22 20:54 Omnipaque 350 Mg/Ml 100 Ml Btl IJ 03/16/22 23:59 100 ml DIRECTED AZALIA Administration Morphine Sulfate 2 mg 02/15/22 13:53 Morphine 2 Mg/Ml Syr IVP Q1H PRN PRN Ondansetron HCl 4 mg 02/15/22 13:53 Ondansetron 4 Mg/2 Ml Vial IVP Q4H PRN PRN Sodium Chloride 0 ml 02/14/22 18:37 02/15/22 23:59 Normal Saline Flush 10 Ml Syr IVP 10 ml PRN PRN Administration Sodium Chloride 50 ml 02/14/22 21:00 Normal Saline - Diluent 50 Ml Vial IV .FOR DI USE AZALIA Sodium Chloride 0 ml 02/15/22 11:16 Normal Saline Flush 10 Ml Syr IVP PRN PRN PFSH Active Problems Active Problems: Problem Status Onset Code Acute cholecystitis due to biliary calculus K80.00 Biliary colic K80.50 Acalculous cholecystitis K81.9 Tobacco Smoking/Tobacco Use Status: Never Alcohol Alcohol Intake: never Substance Use Substance use: Never Substance use type: does not use Vital Signs and Lab Results Vital Signs Most Recent Vital Signs in EMR: Most Recent Vital Signs Temp Pulse Resp BP Pulse Ox 36.3 C L 78 16 110/72 98 02/15/22 23:54 02/15/22 23:54 02/15/22 23:54 02/15/22 23:54 02/15/22 23:54 Lab Results Result Diagrams: 02/14/22 19:53 02/14/22 19:53 Blood Type / Crossmatch: No Data to Display Complete Blood Count: White Blood Count 12.40 10^3/uL (4.4-10.8) H 02/14/22 19:53 Red Blood Count 4.26 10^6/uL (3.93-5.22) 02/14/22 19:53 Hemoglobin 12.6 g/dL (11.2-15.7) 02/14/22 19:53 Hematocrit 38.6 % (36.0-46.0) 02/14/22 19:53 Platelet Count 285 10^3/uL (130-400) 02/14/22 19:53 Complete Metabolic Panel: Sodium 131 mmol/L (136-145) L 02/14/22 19:53 Potassium 4.1 mmol/L (3.5-5.1) 02/14/22 19:53 Chloride 98 mmol/L (98-107) 02/14/22 19:53 Carbon Dioxide 26.4 mmol/L (21.0-32.0) 02/14/22 19:53 BUN 33 mg/dL (7-18) H 02/14/22 19:53 Creatinine 1.2 mg/dL (0.55-1.02) H 02/14/22 19:53 Est GFR (CKD-EPI 2020) 47.80 (mL/min/1.73m2) 02/14/22 19:53 Magnesium 2.2 mg/dL (1.8-2.4) 02/14/22 19:53 Calcium 9.9 mg/dL (8.5-10.1) 02/14/22 19:53 Albumin 3.3 g/dL (3.4-5.0) L 02/14/22 19:53 Glucose 156 mg/dL (74-106) H 02/14/22 19:53 Liver Function Panel: Alanine Aminotransferase (ALT/SGPT) 84 U/L (14-59) H 02/14/22 19:53 Aspartate Amino Transf (AST/SGOT) 64 U/L (15-37) H 02/14/22 19:53 Coagulation Panel: No Data to Display Cardiac Panel: Troponin I < 50 ng/L (<or=60) 02/14/22 Arterial Blood Gas: No Data to Display Venous Blood Gas: No Data to Display Pancreas Panel: Lipase 300 U/L (73-393) 02/14/22 19:53 Thyroid Panel: Thyroid Stimulating Hormone (TSH) 1.16 uIU/mL (0.36-3.74) 02/01/22 15:55 Infectious Disease: Coronavirus (COVID-19)(PCR) Negative (Negative) 02/15/22 11:10 Coronavirus 2019 Source Nasal/Nares 02/15/22 11:10 Blood Cultures: No Data to Display Toxicology Panel: No Data to Display Anesthesia Assessment and Plan Anesthesia History Personal History: No History of Anesthesia Complications Family History: No Family History of Anesthesia Complications Exercise Tolerance Exercise Tolerance: Metabolic Equivalents>4 Pertinent Negatives Pertinent Negatives: No Symptoms of GERD, No Major Cardiovascular Symptoms or Complaints and No Major Pulmonary Symptoms or Complaints Cardiac & Pulmonary Exam Cardiac Exam: Normal S1/S2 Heart Sounds Pulmonary Exam: Clear Bilateral Breath Sounds Implantable Cardiac Device Does patient have a Pacemaker or an ICD?: No Airway Exam Known Difficult Airway: No Mallampati Class: 2 Mouth Opening: Normal (> 3cm) Thyromental Distance: Greater than 3 cm Neck Range of Motion: Full ROM Neck Circumference: Normal Teeth Condition: Generalized Poor Dentition ASA Classification ASA Score: ASA 2 Emergency Case?: No NPO Status NPO Status: NPO Clears >2 hours, Solids >8 hours Anesthesia Plan Resuscitation Status: Full Code Anesthesia Technique: General Anesthesia Airway Planned: Endotracheal Tube Monitors Used: Standard Monitors
[2022-02-16] MEDS: Lactated Ringers 500 ML 30 ML IV (08:40)
[2022-02-16] MEDS: Bupivacaine 0.25% Pres-Free 30 ML VIAL (09:24)
--- NOTE | 2022-02-16 09:59 | INITIAL_ITS ---
- If Service Date Differs Date of service: 02/16/22 Time of Service: 09:59 Care Management Initial Assess REASON FOR HOSPITALIZATION:: acute cholecystitis PAST MEDICAL HISTORY/PAST SURGICAL HISTORY:: All Active Problems (Updated 02/15/22 @ 13:48 by Ernie Luong MD). Acute cholecystitis due to biliary calculus (Acute). Biliary colic (Acute). Acalculous cholecystitis (Acute). Diabetes mellitus PREVIOUS FUNCTIONAL STATUS/SOCIAL/FAMILY SUPPORTS:: Mercedes lives in a mobile home in [place]. Her niece Ruthy has been staying with her for a while and does the cooking. Mercedes has 2 children; a Son Félix in [place], [place] and a daughter Shelby in [place]. She also has 2 grandchildren. Mercedes uses a walker for ambulatory assistance and receives no community services. CURRENT FUNCTIONAL STATUS:: Mercedes was lying in bed when CM met with her. She had surgery this morning and was still a bit sleepy. Mercedes denied having any pain and stated that she felt good. She verbalized that she is not sure how long she will need to remain hospitalized. ADVANCE DIRECTIVES:: none on file Has patient been provided with info about the portal/API?: Yes Did the patient sign up for the portal?: No CODE STATUS:: Full Code INSURANCE COVERAGE / FINANCIAL ISSUES:: Medicare. BS CURRENT HOME/COMMUNITY SERVICES/EQUIPMENT:: uses a walker PRIMARY CARE PHYSICIAN:: Cornell Burger POTENTIAL DISCHARGE NEEDS:: follow up with PCP and plan of care PATIENT/FAMILY EDUCATION NEEDS:: Review of discharge instructions, activity, limitations, follow up plan, Ask Me Three TRANSPORTATION:: via private vehicle with family PLAN:: Mercedes will likely be discharged home with no new services. She will follow up with her community providers and plan of care and transport with family. CM will supoport Mercedes and her discharge needs.
--- NOTE | 2022-02-16 10:30 | RT.EKG_ITS ---
APPROVED REPORT Exam: Resting ECG Reason for Exam: ST eleveation intraopreative Patient Location: I HR:62 bpm ECG Measurements Heart Rate 62 AXIS DC 249 P 16 QRSd 101 QRS 47 QT 500 T 77 QTc 476 Conclusion Sinus bradycardia...rate< 60 Artifact Prolonged DC interval...DC >220, V-rate 50- 90 Low voltage, extremity leads...all extremity leads <0.5mV
[2022-02-16 10:37] LABS: HGB 6.6 g/dL (11.2-15.7)
--- NOTE | 2022-02-16 10:40 | GB_PTH ---
PATIENT: Mercedes Flores LOC: [id number]#:[id number] AGE/SX: 71/F ROOM: 226 RE02/15/[address]: Ernie Luong : 1950 BED: A DIS: 02/21/2022 SPEC #: [id number] RECD: 02/19/22 12:10 STATUS: VALERI REQ #: [id number] SHAHID: 02/16/22 10:[address]: Ernie Luong DEPT: Surgical Specimen RECD BY: Alexus Aguirre ENTERED: 02/19/22 12:11 SP TYPE: GB OTHR DR: Cornell Burger Tissues: 1 - GALLBLADDER Procedures: GROSS AND MICRO LEVEL 3 Comments: [id number]
[2022-02-16 10:51] LABS: Anion Gap 17.5 mmol/L (3-11); CO2 11.5 mmol/L (21.0-32.0); Chloride 99 mmol/L (98-107); Potassium 3.8 mmol/L (3.5-5.1); Sodium 128 mmol/L (136-145); Troponin I < 50 ng/L (<or=60)
--- NOTE | 2022-02-16 11:01 | W.PM.OP ---
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 Preop discussion with her family reported that her symptoms have actually been going on for 3 to 4 months at least. Findings: Severe and dense adhesive disease at the infundibulum of the gallbladder consistent with a very chronic inflammatory process. 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 Dissection of the cystic plate and the associated structures was felt to be unsafe and thus a subtotal cholecystectomy was performed. The cystic artery was controlled with clips. 1 cm cuff of infundibulum was left. The remaining mucosal surface was ablated with cautery under visualization down to the orifice of the cystic duct. The stones were left inside. The cuff was then sutured closed and a surgical drain left in place. Estimated blood loss: 200 cc Complications: No obvious complications but she did develop EKG changes during the case prompting us to initiate a cardiac work-up in the PACU Drains: 15 Estonian surgical drain left in place Procedure details: The patient gave written consent. In agreement with the risks, indications and benefits of the procedure. She was taken to the operating room and laid supine with arms outstretched. Anesthesia was administered which she tolerated very well. Antibiotics have been given. She had received DVT prophylaxis. We performed a timeout and when we were all in agreement I began the case. And draped the abdomen in sterile fashion. I used a Veress needle at the umbilicus but was unable to gain appropriate pressures and thus moved to Todd's point and insufflated without any difficulty. A 5 mm port was placed just above the umbilicus without any difficulty. Diagnostic laparoscopy did not reveal any abnormalities within the peritoneal cavity except for a liver that appears cirrhotic. The gallbladder was not immediately visible. I placed 5 mm ports laterally under direct visualization. Next I looked back at the umbilical area and the patient has a tongue of omentum adhered to the abdominal wall underneath her umbilicus had difficulty insufflating there. There was no bowel involved and this virgin adhesion was thus left alone. A 12 mm port was placed in the epigastrium. I explored beneath the right lobe of the liver and encountered a very firm hard gallbladder. Though it was acutely inflamed and very difficult to grasp, it was also very obvious that this process had been going on for a long time with very dense scar tissue present throughout. Slow and tedious dissection was performed exposing the cystic plate region in the triangle of Calot. I used a combination of blunt and electrocautery dissection. Along the lateral aspect of the infundibulum and near the liver bed was a visible vessel or duct going directly into the liver. This is quite aberrant anatomy and I have never seen such and thus I deliberately stayed away from this and dissected the gallbladder away leaving peritoneum against this vessel and the liver surface. In doing this and made a very small hole in the gallbladder itself and manisha pus poured out. There was no bile with it and no small stones. It was pure, purulent pus. In this small hole I could visualize the very large gallstones present within the gallbladder itself. I continue to focus my dissection on the lateral and medial aspects of the cystic plate and the adhesive disease and chronic adhesions were so dense and firm I felt it was unsafe to continue dissecting since it was readily obvious that the common bile duct was only within a few millimeters of this dissection plane. There is at this time I decided to perform a subtotal cholecystectomy after more than an hour of dissection was not yielding safe anatomic planes for dissection. 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 I went back to the hole I had created on the lateral aspect and circumferentially I divided and went straight across the gallbladder infundibulum using electrocautery. On the medial aspect I encountered the cystic artery and was able to control it with 10 mm clips. This freed up the entire dome/body/fundus of the gallbladder which contained the large stones I had seen. No stones were spilled. All of the pus had already been drained out and suctioned free. Using the fundus to retract the liver, I then focused on my cuff of infundibulum that remained. Explored within the infundibulum and found a large, approximately 1 cm gallstone present impacted against the orifice of the cystic duct. I was able to remove this gallstone intact and laid it to the side to remove at the end. Next, to minimize the remnant, I excised the infundibulum cuff circumferentially all the way down to approximately 1 cm of the cystic duct orifice that was visible. After removing the stone, a scant amount of bile was visible oozing up through the cystic duct orifice. Using electrocautery I ablated and destroyed all visible, remaining mucosa of the small cuff. The cuff was too large for the stapler or an Endoloop so I used a 3-0 Vicryl stitch and sutured the cuff closed. I then removed the remaining fundus off the gallbladder fossa and liver bed and this, the infundibulum pieces and the large gallstone were all placed in an Endo Catch bag and removed from the abdomen. I rechecked for hemostasis and it was excellent. There was no visible bile leaking. I put a 15 Estonian surgical drain draped underneath the gallbladder fossa and took it out of one of my 5 mm lateral port sites. I closed the 12 mm port through the fascia with 0 Vicryl. The remaining ports were removed. Skin was closed with absorbable sutures and dressings were placed. The patient tolerated the procedure well. She did have EKG changes during the case of unknown significance so we decided to initiate a cardiac workup post-op. She was taken to the PACU in hemodynamically stable condition.
[2022-02-16] MEDS: ePHEDrine 25 MG/5 ML Syringe IVP (11:14)
[2022-02-16 11:21] LABS: HGB 11.3 g/dL (11.2-15.7)
--- NOTE | 2022-02-16 12:03 | W.ANESPOSTOP ---
Postoperative Evaluation Date, Time and Location Date Performed: 02/16/22 Time Performed: 11:55 Patient Location: PACU Vital Signs Most Recent Imported Vital Signs: Most Recent Vital Signs Temp Pulse Resp BP Pulse Ox 36.1 C L 76 17 123/62 95 02/16/22 08:00 02/16/22 08:00 02/16/22 08:00 02/16/22 08:00 02/16/22 08:00 Pain Score Most Recent Pain Score: Most Recent Pain Score Pain Level 0 02/16/22 08:00 Assessment Mental Status: Arousable with meaningful communication Airway and Respiratory Function: Patent airway with normal (patient baseline) respiratory exam Cardiovascular Function: Hemodynamically Stable Hydration Status: Adequately Hydrated Nausea & Vomiting: No Nausea or Vomiting Pain: Pt. Denies Any Pain Peripheral Nerve Block: Patient did not receive a nerve block
[2022-02-16] MEDS: Heparin 5,000 UNITS/ML VIAL 5000 UNITS SC (16:10)
[2022-02-16] MEDS: Normal Saline Flush 10 ML SYR IVP (17:03)
[2022-02-16] MEDS: Ondansetron 4 MG/2 ML VIAL IVP (17:04)
[2022-02-16] MEDS: MORPHine 2 MG/ML SYR IVP ×4 (17:04→22:24)
[2022-02-16] MEDS: Normal Saline 500 ML 30 ML IV (17:54)
[2022-02-16] MEDS: Acetaminophen 500 MG TAB 1000 MG PO (20:01)
[2022-02-16 20:21] LABS: INR 1.1 Ratio (0.9-1.1); PTT (UVM) 24 secs (26-37)
[2022-02-16 23:39] LABS: Troponin I < 50 ng/L (<or=60)
[2022-02-17] VITALS (15 sets, daily range): BP systolic 130–210; BP diastolic 71–103; PULSE 67–89; RESP 16–18; TEMP 35.7–36.7; O2SAT 95–99
[2022-02-17] MEDS: PIPERACILLIN/TAZO 3.375 GM in Normal Saline 50 ML IVPB ×2 (00:17→05:39)
[2022-02-17] MEDS: Normal Saline Flush 10 ML SYR IVP ×4 (00:18→12:06)
[2022-02-17] MEDS: MORPHine 2 MG/ML SYR IVP ×4 (00:33→10:04)
[2022-02-17] MEDS: Acetaminophen 500 MG TAB 1000 MG PO ×2 (01:47→07:33)
[2022-02-17] MEDS: Lactated Ringers 1,000 ML 125 ML IV (01:48)
[2022-02-17] MEDS: Ondansetron 4 MG/2 ML VIAL IVP ×3 (02:01→10:03)
[2022-02-17] MEDS: Heparin 5,000 UNITS/ML VIAL 5000 UNITS SC ×2 (04:54→16:57)
[2022-02-17] MEDS: hydrALAZINE 20 MG/ML VIAL 10 MG IVP (06:12)
[2022-02-17] MEDS: Lisinopril 10 MG TAB 20 MG PO (07:33)
[2022-02-17] MEDS: amLODIPine 5 MG TAB 2.5 MG PO (07:33)
--- NOTE | 2022-02-17 09:37 | ANES_ITS ---
Date of service: 02/17/22 Time of Service: 09:37 Anesthesia Note Report Anesthesia Note: Chart and laboratory findings reviewed, cardiac workup was negative for acute ischemia. Patient's daughter, per Dr. Luong, verbalized on phone that she had been getting a cardiac workup in [facility] [place], but patient did not disclose prior to OR case.
--- NOTE | 2022-02-17 10:35 | W.PM.PROGNOT ---
Date of Service Date of service: 02/17/22 Time of Service: 10:36 Assessment and Plan Assessment and plan (1) Acute cholecystitis due to biliary calculus: Status: Acute Assessment and plan: 71 yo woman POD 1 from subtotal cholecystectomy for a very densely contracted, scarred yet acutely inflamed gallbladder. She is HD stable. Her brief cardiac workup is unrevealing for anything concerning and she has no symptoms/signs subjectively or objectively to be concerned about this further. Her metabolic derangements on admission were not very impressive but intraoperative labwork showed significant metabolic acidosis with a very high anion gap. Both post-op and today, her clinical appearance does not agree with that labwork. An acute metabolic acidosis would be compensated by her respiratory system and she has been and continues to be breathing normal. I suspect the intraop labwork was deranged from being pulled from IV lines diluted with medications as evidenced by her HGB resulting in the 6 range but then normal when we repeated it. I'll get repeat labwork today to make sure it is all normalize, which I suspect it will be based on her clinical appearance. Her only issue is persistent vomiting at the moment. It is scant, not bilious and minimal in volume. Indeed, vomiting has been her problem at home, daily, for months now. Her GB was a clear and obvious problem and I'm optimistic she will get completely better. I think we just need to be patient and go slowly with her diet and watch her electrolytes. I didn't think of it before, but she could be someone at risk for re-feeding syndrome since supposedly she hasn't been eating for the last 3 or 4 months and endorses significant weight loss. I don't think this is an ileus because she is not distended at all, but certainly it could be after a 3 hour operation. OVERALL PLAN TODAY: check e-lytes gentle IVF - check BuN/hydration status non-narcotic analgesia OOB to chair DVT ppx IS drain teaching Hopeful DC tomorrow Subjective Subjective Interval history since last seen: Overnight, patient has had small amounts of vomiting. She does not describe nausea but says it is coming from her stomach, not from her head. She doesn't have an appetitie. She has not been burping but she thinks she has not been passing gas either. No significant abdominal pain. She says she is sore, but nothing significant. No heart issues overnight. She denies chest pain. Her troponin(ordered routinely) last night was normal. Good urine output. Exam Narrative Exam Narrative: Gen: Nontoxic, comfortable and interactive Neuro: Alert and oriented Psych: Mood and affect is her normal baseline and cooperative and friendly. Insight and understanding seems reasonable although although her memory seems mildly impaired. Abdomen: Soft, no distention, grossly nontender. She has some mild tenderness at incision sites which are free of erythema. Drain output: serosanguinous. No bile. Minimal amount in bulb. Extremities: Nonedematous and nontender Objective Last Vital Signs Temp 96.6 F L 02/17/22 10:21 Pulse 89 02/17/22 10:21 Resp 18 02/17/22 10:21 BP 146/82 H 02/17/22 10:21 Pulse Ox 98 02/17/22 10:21 Laboratory Results - last 24 hr 02/16/22 02/16/22 02/16/22 10:27 10:27 10:30 Hgb 6.6 L* D PT 12.9 H INR 1.1 APTT 24 L Sodium 128 L Potassium 3.8 Chloride 99 Carbon Dioxide 11.5 L Anion Gap 17.5 H Troponin I < 50 02/16/22 02/16/22 02/16/22 10:37 11:10 23:15 Hgb 11.3 D PT Cancelled INR Cancelled APTT Cancelled Sodium Potassium Chloride Carbon Dioxide Anion Gap Troponin I < 50
[2022-02-17] MEDS: POTASSIUM CHLORIDE/D5-0.45NACL 1,000 ML 100 MEQ IV ×2 (10:52→20:54)
--- NOTE | 2022-02-17 11:12 | NUR.NOTE ---
Nursing Note: spoke with this RN at this time regarding pt.'s plan of care moving forward. Per MD, pt. to get up to the chair for the rest of the afternoon, ...Basically I want her up in the chair until 7pm. Per , pt. has been having the nausea for ...approximately 3 months now. states that he is ...not going to double up on anti-nausea medications. RN noted that the MD had ordered pantoprazole (Protonix) IVP. Per MD, in regards to pt.'s pain level, ...pt. is not a complainer. She might say she's just a little sore. Per , pt. to receive scheduled acetaminophen (Tylenol) IV, PRN morphine IV was discontinued.
[2022-02-17 11:41] LABS: ALT 154 U/L (14-59); AST 113 U/L (15-37); Albumin 2.8 g/dL (3.4-5.0); Alkaline Phosphatase 166 U/L (46-116); BUN 16 mg/dL (7-18); Bilirubin, Total 1.3 mg/dL (0.2-1.0); CREATININE 1.2 mg/dL (0.55-1.02); Calcium 9.2 mg/dL (8.5-10.1); Chloride 98 mmol/L (98-107); Glucose 178 mg/dL (74-106); Potassium 3.2 mmol/L (3.5-5.1); Sodium 133 mmol/L (136-145); Total Protein 7.5 g/dL (6.4-8.2)
[2022-02-17] MEDS: Pantoprazole 40 MG VIAL IVP (12:05)
[2022-02-17 12:06] LABS: Lab Add On Test DONE
[2022-02-17 12:12] LABS: HCT 33.9 % (36.0-46.0); HGB 11.1 g/dL (11.2-15.7)
[2022-02-17] MEDS: Insulin Aspart 300 UNITS/3 ML PEN SC ×2 (12:30→18:10)
[2022-02-17] MEDS: ACETAMINOPHEN 1,000 MG/100 ML BTL 400 MG IVPB ×2 (14:28→20:43)
[2022-02-17] MEDS: Normal Saline 50 ML 200 ML IV (18:18)
[2022-02-17] MEDS: Venlafaxine 75 MG TAB PO (20:44)
[2022-02-18] VITALS: BP 104/61; PULSE 78; RESP 21; TEMP 36.7; O2SAT 96
[2022-02-18] MEDS: Insulin Aspart 300 UNITS/3 ML PEN SC ×4 (00:19→18:38)
[2022-02-18] MEDS: ACETAMINOPHEN 1,000 MG/100 ML BTL 400 MG IVPB ×2 (02:33→08:22)
[2022-02-18] MEDS: Levothyroxine 50 MCG TAB PO (06:20)
[2022-02-18 06:51] LABS: Platelet Count 212 10^3/uL (130-400)
[2022-02-18 06:54] VITALS: BP 149/79; PULSE 82; RESP 20; TEMP 36.3; O2SAT 99
[2022-02-18 07:15] LABS: Anion Gap 4.3 mmol/L (3-11); BUN 10 mg/dL (7-18); CO2 27.7 mmol/L (21.0-32.0); CREATININE 1.2 mg/dL (0.55-1.02); Calcium 8.7 mg/dL (8.5-10.1); Chloride 101 mmol/L (98-107); Glucose 166 mg/dL (74-106); Potassium 4.2 mmol/L (3.5-5.1); Sodium 133 mmol/L (136-145)
[2022-02-18 07:22] LABS: ALT 116 U/L (14-59); AST 71 U/L (15-37); Albumin 2.5 g/dL (3.4-5.0); Alkaline Phosphatase 138 U/L (46-116); Bilirubin, Direct 0.3 mg/dL (0.0-0.2); Bilirubin, Total 0.6 mg/dL (0.2-1.0); Total Protein 6.7 g/dL (6.4-8.2)
[2022-02-18] MEDS: POTASSIUM CHLORIDE/D5-0.45NACL 1,000 ML 100 MEQ IV (07:34)
[2022-02-18] MEDS: Atorvastatin 40 MG TAB PO (08:23)
[2022-02-18] MEDS: Venlafaxine 75 MG TAB PO ×2 (08:23→19:24)
[2022-02-18] MEDS: Aspirin E.C. 81 MG TABEC PO (08:23)
[2022-02-18] MEDS: Lisinopril 20 MG TAB PO (08:23)
[2022-02-18] MEDS: amLODIPine 2.5 MG TAB PO (08:23)
--- NOTE | 2022-02-18 11:30 | W.PM.PROGNOT ---
Date of Service Date of service: 02/18/22 Time of Service: 12:00 Assessment and Plan Assessment and plan (1) Acute cholecystitis due to biliary calculus: Status: Acute Assessment and plan: 71-year-old woman postop day 2 from laparoscopic subtotal cholecystectomy. She is hemodynamically stable. The vomiting that was persisting up until yesterday evening seems to have subsided. Her abdominal exam is benign. Cannot help but wonder if she has concomitant gastritis/PUD. Overall plan for today: Clear liquid diet as tolerated, regular tomorrow hopefully DVT prophylaxis Home medications Hep-Lock IV fluids - oral hydration only Continue PPI Non-narcotic analgesia Drain teaching for hopeful discharge home tomorrow She does not need to be on antibiotics Subjective Subjective Interval history since last seen: No overnight events. She has not vomited since yesterday evening. No vomiting today at all. No fevers. Her appetite is minimal. She is having good urine output. She has no complaints of abdominal pain and says it is just a little sore. Exam Narrative Exam Narrative: General: Nontoxic, comfortable and interactive Neuro: Alert and oriented x3 Psych: Appropriate mood and affect, reasonable insight and understanding. Abdomen: Soft, nondistended, grossly nontender. The incision sites look perfect. No erythema or tenderness. The drain is intact. 190 cc serosanguineous. No bile. Objective Last Vital Signs Temp 97.3 F L 02/18/22 06:54 Pulse 82 02/18/22 06:54 Resp 20 02/18/22 06:54 BP 149/79 H 02/18/22 06:54 Pulse Ox 99 02/18/22 06:54 Laboratory Results - last 24 hr 02/17/22 02/17/22 02/17/22 11:00 11:00 11:00 Hgb 11.1 L Hct 33.9 L Plt Count Sodium 133 L Potassium 3.2 L Chloride 98 Carbon Dioxide 28.0 Anion Gap 7.0 BUN 16 Creatinine 1.2 H Est GFR (CKD-EPI 2020) 47.80 Glucose 178 H Calcium 9.2 Total Bilirubin 1.3 H Conjugated Bilirubin AST 113 H ALT 154 H Alkaline Phosphatase 166 H Total Protein 7.5 Albumin 2.8 L Add-On Test Request DONE 02/18/22 02/18/22 02/18/22 06:35 06:35 06:35 Hgb Hct Plt Count 212 Sodium 133 L Potassium 4.2 D Chloride 101 Carbon Dioxide 27.7 Anion Gap 4.3 BUN 10 Creatinine 1.2 H Est GFR (CKD-EPI 2020) 47.80 Glucose 166 H Calcium 8.7 Total Bilirubin 0.6 Conjugated Bilirubin 0.3 H AST 71 H ALT 116 H Alkaline Phosphatase 138 H Total Protein 6.7 Albumin 2.5 L Add-On Test Request
[2022-02-18] MEDS: Pantoprazole 40 MG VIAL IVP (12:15)
[2022-02-18] MEDS: Normal Saline Flush 10 ML SYR IVP (12:16)
[2022-02-18 15:19] VITALS: BP 161/78; PULSE 80; RESP 20; TEMP 36.6; O2SAT 98
[2022-02-18] MEDS: Heparin 5,000 UNITS/ML VIAL 5000 UNITS SC (16:00)
[2022-02-18] MEDS: Acetaminophen 325 MG TAB 650 MG PO (19:24)
--- NOTE | 2022-02-18 19:46 | NUR.NOTE ---
Nursing Note: Spoke with Dr. Luong earlier after paging him twice. Informed in both pages and verbally that pt is again nauseated feels like I'm gonna be sick if she takes in more than just sips. Informed that the phenergan did help with the nausea and vomiting last night but that the pt had very vivid dreams with it. Requested x3 to change to other medication. MD declined request. She isn't vomiting so she is doing better. I don't want to give her anything. Was able to obtain pain med order for pt.
[2022-02-18 23:55] VITALS: BP 134/76; PULSE 75; RESP 18; TEMP 36.8; O2SAT 97
[2022-02-19] MEDS: Levothyroxine 50 MCG TAB PO (06:14)
[2022-02-19] MEDS: Heparin 5,000 UNITS/ML VIAL 5000 UNITS SC ×2 (06:14→18:15)
[2022-02-19 07:09] VITALS: BP 132/77; PULSE 76; RESP 17; TEMP 36.5; O2SAT 95
[2022-02-19] MEDS: Venlafaxine 75 MG TAB PO ×2 (07:51→19:32)
[2022-02-19] MEDS: Lisinopril 20 MG TAB PO (07:51)
[2022-02-19] MEDS: Atorvastatin 40 MG TAB PO (07:51)
[2022-02-19] MEDS: Aspirin E.C. 81 MG TABEC PO (07:51)
[2022-02-19] MEDS: amLODIPine 2.5 MG TAB PO (07:52)
[2022-02-19] MEDS: Pantoprazole 40 MG TABCR PO (07:52)
[2022-02-19] MEDS: Normal Saline Flush 10 ML SYR IVP ×2 (07:52→19:32)
[2022-02-19] MEDS: Insulin Aspart 300 UNITS/3 ML PEN SC ×2 (12:02→18:15)
--- NOTE | 2022-02-19 14:15 | W.PM.PROGNOT ---
Date of Service Date of service: 02/19/22 Time of Service: 13:30 Assessment and Plan Assessment and plan (1) Acute cholecystitis due to biliary calculus: Status: Acute Assessment and plan: 71-year-old woman postop day 3 from laparoscopic subtotal cholecystectomy. She is hemodynamically stable. The vomiting has subsided and she has tolerated clear liquids. Her abdominal exam is benign. Overall plan for today: Advance diet to soft DVT prophylaxis Home medications OK to leave her IV out Continue PPI Non-narcotic analgesia Drain teaching for hopeful discharge home tomorrow She does not need to be on antibiotics Subjective Subjective Interval history since last seen: Mrs Flores is a pleasant 71-year-old female who was admitted 4 days ago with acute cholecystitis. She underwent surgery and a partial cholecystectomy was done. There were a lot of adhesions around the infundibulum of the gallbladder. The patient has struggled with nausea and vomiting until late yesterday. She has tolerated clears for 3 meals now. She denies any more nausea or vomiting. She has been afebrile. She has a BONNIE in place which is putting out serous fluid. Per nursing staff the patient has been up on her own to go to the bathroom. She does live alone. Exam Const General: cooperative, comfortable and no acute distress Orientation: alert and oriented x3 HENMT Head: normocephalic and atraumatic Resp Effort & Inspection: normal respiratory effort Auscultation: clear to auscultation bilaterally and diminished lung sounds bilaterally in the lower lung anguiano Cardio Rate: regular rate Rhythm: regular rhythm GI Inspection: incision (bruising noted, otherwise d/i) Palpation: soft and tender (appropriately over the incisions) Auscultation: normoactive bowel sounds Objective Last Vital Signs Temp 97.7 F 02/19/22 07:09 Pulse 76 02/19/22 07:09 Resp 17 02/19/22 07:09 BP 132/77 02/19/22 07:09 Pulse Ox 95 02/19/22 07:09
[2022-02-19 14:38] VITALS: BP 133/66; PULSE 82; RESP 17; TEMP 36.8; O2SAT 96
--- NOTE | 2022-02-19 17:09 | PDOC.CMPRO ---
- If Service Date Differs Date of service: 02/19/22 Time of Service: 17:09 Care Management Progress Note S/O: Mercedes was sitting up in bed when CM met with her. She stated that she is doing ok today, but hasn't been able to eat much since her surgery. Per report, her diet will be advanced as tolerated. Mercedes stated that she has support from her niece who checks in on her regularly, and she does not feel that she will require additional community support at this time. CM will continue to follow. A: Mercedes is a 71 year old female admitted to [facility] on 02/15/22 with cholesystitis. P: Mercedes will likely be discharged home with no new services. She will follow up with her community providers and plan of care and transport with family. CM will support Mercedes and her discharge needs.
[2022-02-19] MEDS: Acetaminophen 325 MG TAB 650 MG PO (19:32)
--- NOTE | 2022-02-19 20:44 | NUR.NOTE ---
Pt request that all 4 bed rails be up when in bed. Nursing Note:
[2022-02-19 23:05] VITALS: BP 145/73; PULSE 75; RESP 16; TEMP 36.8; O2SAT 95
[2022-02-20] MEDS: Levothyroxine 50 MCG TAB PO (06:19)
[2022-02-20] MEDS: Heparin 5,000 UNITS/ML VIAL 5000 UNITS SC ×2 (06:19→17:56)
[2022-02-20 07:29] VITALS: BP 132/79; PULSE 89; RESP 18; TEMP 36.3; O2SAT 96
--- NOTE | 2022-02-20 07:32 | W.PM.PROGNOT ---
Date of Service Date of service: 02/20/22 Time of Service: 07:32 Assessment and Plan Assessment and plan (1) Acute cholecystitis due to biliary calculus: Status: Acute Assessment and plan: POD #4 s/p laproscopic cholecystectomy Low fat, soft diet. Tolerating well, with decreased appetite. Denies vomiting. Describes some nausea. Pain is well controlled. Will change BS checks to QACHS Will discuss with care management d/c concerns. She will require home health upon d/c for drain management. Subjective Subjective Interval history since last seen: Arrived with the patient sitting up in the chair. She denies having any pain at this time, I am just sore. She states she was able to eat some of her dinner last night. She reports having occasional nausea, denies vomiting. She expresses eagerness to return home. She states that her niece is able to help some, with groceries and meals. Exam Const General: cooperative, healthy appearing and comfortable Resp Effort & Inspection: normal respiratory effort, no audible wheezes and no cough GI Palpation: soft Other: Incision sites are well approximated. Ecchymosis noted around these area's. Slightly tender to palpation. BONNIE drain with serous fluid. Objective Last Vital Signs Temp 36.3 C L 02/20/22 07:29 Pulse 89 02/20/22 07:29 Resp 18 02/20/22 07:29 BP 132/79 02/20/22 07:29 Pulse Ox 96 02/20/22 07:29
[2022-02-20] MEDS: Aspirin E.C. 81 MG TABEC PO (07:43)
[2022-02-20] MEDS: Lisinopril 20 MG TAB PO (07:43)
[2022-02-20] MEDS: Venlafaxine 75 MG TAB PO ×2 (07:43→20:13)
[2022-02-20] MEDS: Pantoprazole 40 MG TABCR PO (07:43)
[2022-02-20] MEDS: Atorvastatin 40 MG TAB PO (07:43)
[2022-02-20] MEDS: amLODIPine 2.5 MG TAB PO (07:43)
--- NOTE | 2022-02-20 09:28 | W.ANESPRE ---
General Info Date of Service Date Performed: 02/20/22 Height: 5 ft 5 in Weight: 64.864 kg Body Mass Index (BMI): 23.8 Surgical Procedure: Operation Date: 02/16/22 07:40 Proposed Procedure Side Surgeon p Cholecystectomy Laparoscopic Cholangio Not Applicable Ernie Luong MD Actual Procedure Side Surgeon p Cholecystectomy Laparoscopic Not Applicable Ernie Luong MD Pre-Op Diagnosis Post-Op Diagnosis Cholesystitis Cholesystitis Meds Allergies and Home Medications Allergies Allergy/AdvReac Type Severity Reaction Status Date / Time enviornmental Allergy Mild head Uncoded 02/14/22 21:03 congestion Home Medication Medication Instructions Recorded amlodipine 2.5 mg tablet 2.5 mg PO DAILY 02/14/22 aspirin 81 mg tablet 81 mg PO DAILY 02/14/22 atorvastatin 40 mg tablet 40 mg PO DAILY 02/14/22 atorvastatin 40 mg tablet 40 mg PO DAILY 02/14/22 canagliflozin 300 mg tablet 300 mg PO DAILY 02/14/22 (Invokana) letrozole 2.5 mg tablet 2.5 mg PO DAILY 02/14/22 levothyroxine 50 mcg tablet 50 mcg PO DAILY 02/14/22 lisinopril 20 mg tablet 20 mg PO DAILY 02/14/22 sitagliptin phosphate 50 mg tablet 50 mg PO DAILY 02/14/22 (Januvia) venlafaxine 75 mg tablet 75 mg PO BID 02/14/22 Current Visit Medications: Current Medications Generic Name Dose Route Start Last Admin Trade Name Freq PRN Reason Stop Dose Admin Acetaminophen 650 mg 02/18/22 17:42 02/19/22 19:32 Acetaminophen 325 Mg Tab PO 650 mg Q6H PRN PRN Administration Amlodipine Besylate 2.5 mg 02/18/22 08:30 02/20/22 07:43 Amlodipine 2.5 Mg Tab PO 2.5 mg DAILY AZALIA Administration Aspirin 81 mg 02/18/22 08:30 02/20/22 07:43 Aspirin E.C. 81 Mg Tabec PO 81 mg DAILY AZALIA Administration Atorvastatin Calcium 40 mg 02/18/22 08:30 02/20/22 07:43 Atorvastatin 40 Mg Tab PO 40 mg DAILY AZALIA Administration Heparin Sodium (Porcine) 5,000 units 02/19/22 06:00 02/20/22 06:19 Heparin 5,000 Units/Ml Vial SC 5,000 units Q12H AZALIA Administration Promethazine HCl 25 mg/ Sodium 51 mls @ 200 mls/hr 02/17/22 14:00 02/17/22 18:18 Chloride IVPB 200 mls/hr Q6H PRN PRN Administration Sodium Chloride 500 mls @ 0 mls/hr 02/20/22 09:09 Saline 500ml Bag IV PRN PRN As Directed Sodium Chloride 50 mls @ 0 mls/hr 02/20/22 09:09 Saline 50ml Bag IV PRN PRN As Directed Sodium Chloride 1,000 mls @ 80 mls/hr 02/20/22 09:15 Saline 1000ml Bag IV INFUSION AZALIA IV Miscellaneous Supplies 1 each 02/15/22 11:30 Iv Access IV DIRECTED AZALIA IV Miscellaneous Supplies 1 each 02/20/22 09:15 Iv Access IV DIRECTED AZALIA Insulin Aspart 0 units 02/17/22 12:00 02/20/22 06:21 Insulin Aspart 300 Units/3 Ml Pen SC Not Given Q6H [facility] Protocol Levothyroxine Sodium 50 mcg 02/18/22 06:00 02/20/22 06:19 Levothyroxine 50 Mcg Tab PO 50 mcg DAILY@0600 AZALIA Administration Lisinopril 20 mg 02/18/22 08:30 02/20/22 07:43 Lisinopril 20 Mg Tab PO 20 mg DAILY AZALIA Administration Pantoprazole Sodium 40 mg 02/17/22 12:00 02/18/22 12:15 Pantoprazole 40 Mg Vial IVP 40 mg Q24H AZALIA Administration Pantoprazole Sodium 40 mg 02/19/22 07:30 02/20/22 07:43 Pantoprazole 40 Mg Tabcr PO 40 mg DAILY@0730 AZALIA Administration Sodium Chloride 0 ml 02/15/22 11:16 02/19/22 19:32 Normal Saline Flush 10 Ml Syr IVP 10 ml PRN PRN Administration Sodium Chloride 0 ml 02/20/22 20:00 Normal Saline Flush 10 Ml Syr IVP BID AZALIA Venlafaxine HCl 75 mg 02/17/22 20:00 02/20/22 07:43 Venlafaxine 75 Mg Tab PO 75 mg BID AZALIA Administration PFSH Active Problems Active Problems: Problem Status Onset Code Acute cholecystitis due to biliary calculus K80.00 Medical History Medical History (Updated 02/18/22 @ 12:47 by Ernie Luong MD) Acalculous cholecystitis Biliary colic Tobacco Smoking/Tobacco Use Status: Never Alcohol Alcohol Intake: never Substance Use Substance use: Never Substance use type: does not use Vital Signs and Lab Results Vital Signs Most Recent Vital Signs in EMR: Most Recent Vital Signs Temp Pulse Resp BP Pulse Ox 36.3 C L 89 18 132/79 96 02/20/22 07:29 02/20/22 07:29 02/20/22 07:29 02/20/22 07:29 02/20/22 07:29 Point of Care Results Point of Care Results: Finger Stick Blood Glucose 130 02/20/22 06:21 Lab Results Result Diagrams: 02/20/22 09:45 02/20/22 09:45 Blood Type / Crossmatch: No Data to Display Complete Blood Count: White Blood Count 8.74 10^3/uL (4.4-10.8) 02/20/22 09:45 Red Blood Count 3.60 10^6/uL (3.93-5.22) L 02/20/22 09:45 Hemoglobin 10.9 g/dL (11.2-15.7) L 02/20/22 09:45 Hematocrit 33.4 % (36.0-46.0) L 02/20/22 09:45 Platelet Count 260 10^3/uL (130-400) 02/20/22 09:45 Complete Metabolic Panel: Sodium 131 mmol/L (136-145) L 02/20/22 09:45 Potassium 3.1 mmol/L (3.5-5.1) L 02/20/22 09:45 Chloride 99 mmol/L (98-107) 02/20/22 09:45 Carbon Dioxide 25.6 mmol/L (21.0-32.0) 02/20/22 09:45 BUN 9 mg/dL (7-18) 02/20/22 09:45 Creatinine 1.1 mg/dL (0.55-1.02) H 02/20/22 09:45 Est GFR (CKD-EPI 2020) 53.06 (mL/min/1.73m2) 02/20/22 09:45 Magnesium 2.2 mg/dL (1.8-2.4) 02/14/22 19:53 Calcium 8.8 mg/dL (8.5-10.1) 02/20/22 09:45 Albumin 2.6 g/dL (3.4-5.0) L 02/20/22 09:45 Glucose 193 mg/dL (74-106) H 02/20/22 09:45 Liver Function Panel: Alanine Aminotransferase (ALT/SGPT) 127 U/L (14-59) H 02/20/22 09:45 Aspartate Amino Transf (AST/SGOT) 101 U/L (15-37) H 02/20/22 09:45 Coagulation Panel: INR International Normalized Ratio 1.1 Ratio (0.9-1.1) 02/16/22 10:30 Prothrombin Time 12.9 secs (9.7-12.8) H 02/16/22 10:30 Activated Partial Thromboplast Time 24 secs (26-37) L 02/16/22 10:30 Cardiac Panel: Troponin I < 50 ng/L (<or=60) 02/16/22 Arterial Blood Gas: No Data to Display Venous Blood Gas: No Data to Display Pancreas Panel: Lipase 300 U/L (73-393) 02/14/22 19:53 Thyroid Panel: Thyroid Stimulating Hormone (TSH) 1.16 uIU/mL (0.36-3.74) 02/01/22 15:55 Infectious Disease: Coronavirus (COVID-19)(PCR) Negative (Negative) 02/15/22 11:10 Coronavirus 2019 Source Nasal/Nares 02/15/22 11:10 Blood Cultures: No Data to Display Toxicology Panel: No Data to Display Imaging and Studies Imaging and Studies Study information below may be from another EMR and interpreted by another provider. Please see original notes in EMR for more complete details. EKG Summary: DATE/TIME OF SERVICE: 02/16/22 1119 : 1950PERFORMING LOCATION: [place] APPROVED REPORT Exam: Resting ECG Reason for Exam: ST eleveation intraopreative Patient Location: I HR:62 bpm ECG Measurements Heart Rate 62 AXIS RI 249 P 16 QRSd 101 QRS 47 QT 500 T77 QTc 476 Conclusion Sinus bradycardia...rate< 60 Artifact Prolonged RI interval...RI >220, V-rate 50- 90 Low voltage, extremity leads...all extremity leads <0.5mV Anesthesia Assessment and Plan Anesthesia History Personal History: No History of Anesthesia Complications Family History: No Family History of Anesthesia Complications Exercise Tolerance Exercise Tolerance: Metabolic Equivalents>4 Cardiac & Pulmonary Exam Cardiac Exam: Normal S1/S2 Heart Sounds Pulmonary Exam: Clear Bilateral Breath Sounds Implantable Cardiac Device Does patient have a Pacemaker or an ICD?: No Airway Exam Known Difficult Airway: No Mallampati Class: 2 Mouth Opening: Normal (> 3cm) Thyromental Distance: Greater than 3 cm Neck Range of Motion: Full ROM Neck Circumference: Normal Teeth Condition: Generalized Poor Dentition ASA Classification ASA Score: ASA 2 Emergency Case?: No NPO Status NPO Status: NPO Clears >2 hours, Solids >8 hours Anesthesia Plan Resuscitation Status: Full Code Anesthesia Technique: General Anesthesia Airway Planned: Natural Airway Monitors Used: Standard Monitors Preoperative Comments:: Pt. has had nausea and vomiting for 4 day post lap chiquita. Thanksgiving was vomiting every hour. Now is not nauseated, and vomiting small amount every 4 hours or so. She was receiving phenergan but responded poorly to this with scary thoughts and hallucinations. Spoke to surgeon, we will wait for now on EGD and give her droperidol instead of zofran which is not working and phenergan which she has adverse reaction to. I feel she would be a candidate for natural airway but will reassess if EGD performed.
[2022-02-20] MEDS: Normal Saline 1,000 ML 80 ML IV (09:34)
[2022-02-20 09:52] LABS: HCT 33.4 % (36.0-46.0); HGB 10.9 g/dL (11.2-15.7); MCH 30.3 pg (27.0-33.0); MCHC 32.6 % (32.0-36.0); MCV 93 fL (80-95); MPV 9.5 fL (8.0-11.0); Platelet Count 260 10^3/uL (130-400); RDW 14.7 % (11.7-14.6); RDW-SD 50.3 fL; WBC 8.74 10^3/uL (4.4-10.8)
[2022-02-20 10:07] LABS: ALT 127 U/L (14-59); AST 101 U/L (15-37); Albumin 2.6 g/dL (3.4-5.0); Alkaline Phosphatase 201 U/L (46-116); Anion Gap 6.4 mmol/L (3-11); BUN 9 mg/dL (7-18); Bilirubin, Total 0.5 mg/dL (0.2-1.0); CO2 25.6 mmol/L (21.0-32.0); CREATININE 1.1 mg/dL (0.55-1.02); Calcium 8.8 mg/dL (8.5-10.1); Chloride 99 mmol/L (98-107); Estimated GFR 53.06 (mL/min/1.73m2); Glucose 193 mg/dL (74-106); Potassium 3.1 mmol/L (3.5-5.1); Sodium 131 mmol/L (136-145); Total Protein 7.3 g/dL (6.4-8.2)
[2022-02-20 10:56] VITALS: BMI 23.8
[2022-02-20] MEDS: POTASSIUM CHLORIDE 20 MEQ/100 ML BAG 50 MEQ IVPB (11:30)
[2022-02-20] MEDS: Insulin Aspart 300 UNITS/3 ML PEN SC (11:56)
[2022-02-20 14:46] VITALS: BP 133/73; PULSE 98; RESP 18; TEMP 36.8; O2SAT 99
[2022-02-20] MEDS: POTASSIUM CHLORIDE 20 MEQ/100 ML BAG 25 MEQ IVPB (15:22)
--- NOTE | 2022-02-20 15:35 | PDOC.CMPRO ---
- If Service Date Differs Date of service: 02/20/22 Time of Service: 15:35 Care Management Progress Note S/O: Mercedes was sleeping when CM attempted to meet with her multiple times today. Per RN, she ate a light breakfast, but was not able to tolerate it. She has been resting most of the day. Per provider, she is not yet medically cleared. She may need a ride home once she becomes medically cleared, which CM will arrange. Mercedes is agreeable to having HH RN when she transitions home. CM will continue to follow. A: Mercedes is a 71 year old female admitted to [facility] on 02/15/22 with cholesystitis. P: Mercedes will likely be discharged home with no new services. She will follow up with her community providers and plan of care and transport with family. CM will support Mercedes and her discharge needs.
--- NOTE | 2022-02-20 17:03 | PHA.REVIEW2 ---
Pharmacy Admission Review - Admission Clinical Review (Last Updated 02/18/22 @ 12:47 by Ernie Luong MD) Acute cholecystitis due to biliary calculus (Acute) enviornmental Allergy (Mild, Uncoded 02/14/22 21:03) head congestion Resuscitation Status Full Code Height 5 ft 5 in Weight 64.864 kg - Renal Dosing Renal Dosing: BUN 9 mg/dL (7-18) 02/20/22 09:45 Creatinine 1.1 mg/dL (0.55-1.02) H 02/20/22 09:45 Medications needing adjustments: Reviewed (Crcl ~46.6 mL/min current meds okay) - Anticoagulation Anticoagulation: Hgb 10.9 g/dL (11.2-15.7) L 02/20/22 09:45 Hct 33.4 % (36.0-46.0) L 02/20/22 09:45 Plt Count 260 10^3/uL (130-400) 02/20/22 09:45 INR Cancelled 02/16/22 10:37 Creatinine 1.1 mg/dL (0.55-1.02) H 02/20/22 09:45 DVT Prophylaxis: Reviewed Medications: Heparin Therapeutic Anticoagulation: N/A - Opiate Usage Evaluate Pain Scale/Pains Meds: N/A - Relevant Labs Sodium 131 mmol/L (136-145) L 02/20/22 09:45 Potassium 3.1 mmol/L (3.5-5.1) L D 02/20/22 09:45 Chloride 99 mmol/L (98-107) 02/20/22 09:45 Magnesium 2.2 mg/dL (1.8-2.4) 02/14/22 19:53 Electrolytes, C-Reactive P, ESR: Reviewed (IV K+ ordered) - DM Control DM Control: Glucose 193 mg/dL (74-106) H 02/20/22 09:45 Finger Stick Blood Glucose 191 Finger Stick Blood Glucose 191 Finger Stick Blood Glucose 191 DM Control: Intervened (Asked provider about changing sliding scale aspart as pt has a new diet ordered. Provider is aware and is making sure patient can tolerate diet before adjusting.) - Cardiac Review Cardiac Review: Troponin I < 50 ng/L (<or=60) 02/16/22 23:15 BP, HR, EF%: Reviewed - Qtc Review QTc: Reviewed (QTc 476 11/25/22) - IV to PO Switch IV Medications: Reviewed - Home Meds Home Med List reviewed: Intervened (discontinued a duplicate med) Relevent Home Meds Not ordered & why?: matheus starr, letrozole - Current meds Current Medication Order Review: Reviewed - Comments Comments/Follow Ups: Watch VS, SCr, K+, labs and for med changes (possible renal dose adjustments, insulin aspart time adjustment)
[2022-02-20] MEDS: Polyethylene Glycol 3350 17 GM PACKET PO (17:56)
[2022-02-20] MEDS: Acetaminophen 325 MG TAB 650 MG PO (20:12)
[2022-02-20 23:35] VITALS: BP 149/66; PULSE 77; RESP 16; TEMP 36.7; O2SAT 96
--- NOTE | 2022-02-21 | DI.RAD_ITS ---
Exam(s) XR ABDOMEN FLAT UPRIGHT EXAM: XR ABDOMEN FLAT UPRIGHT CLINICAL HISTORY: Nausea/Vomiting, s/p lap chiquita. TECHNIQUE: 2D digital imaging was performed. COMPARISON: CT CT ABDOMEN PELVIS W from 02/14/2022 FINDINGS: Two views-supine and upright: When compared to the CT scan of 02/14/2022 there are now surgical clips in the right upper quadrant w hich is most probably consistent with interval cholecystectomy. There is also a drainage catheter on the right side in this region. On the upright image there is no free air evident. No obvious bowel obstruction. 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 Left hip unremarkable. L1 compression fracture again noted, age indeterminate. IMPRESSION: Interval cholecystectomy. Right-sided drainage catheter. No bowel obstruction seen. DATA REPOSITORY: RADIATION DOSE DELIVERED:
[2022-02-21] MEDS: Insulin Aspart 300 UNITS/3 ML PEN SC ×2 (00:01→12:34)
[2022-02-21] MEDS: Normal Saline 1,000 ML 30 ML IV (02:34)
[2022-02-21] MEDS: Heparin 5,000 UNITS/ML VIAL 5000 UNITS SC (06:05)
[2022-02-21] MEDS: Levothyroxine 50 MCG TAB PO (06:05)
[2022-02-21 06:53] LABS: Abs Immature Grans 0.06 10^3/uL (0.0-0.06); Absolute Basophil Count 0.03 10^3/uL (0.0-0.2); Absolute Eosinophil Count 0.31 10^3/uL (0.0-0.7); Absolute Lymphocyte Count 1.68 10^3/uL (1.2-3.4); Absolute Monocyte Count 0.78 10^3/uL (0.1-0.8); Absolute Neutrophil Count 6.61 10^3/uL (1.2-6.7); Basophils % 0.3; Eosinophils % 3.3; HCT 30.6 % (36.0-46.0); HGB 10.2 g/dL (11.2-15.7); Immature Grans % 0.6; Lymphocytes % 17.7; MCH 30.7 pg (27.0-33.0); MCHC 33.3 % (32.0-36.0); MCV 92 fL (80-95); MPV 10.6 fL (8.0-11.0); Monocytes % 8.2; Neutrophils % 69.9; Platelet Count 269 10^3/uL (130-400); RBC 3.32 10^6/uL (3.93-5.22); RDW 15.1 % (11.7-14.6); RDW-SD 50.9 fL; WBC 9.47 10^3/uL (4.4-10.8)
[2022-02-21 07:08] LABS: Anion Gap 4.4 mmol/L (3-11); BUN 6 mg/dL (7-18); CO2 26.6 mmol/L (21.0-32.0); CREATININE 0.9 mg/dL (0.55-1.02); Calcium 8.6 mg/dL (8.5-10.1); Chloride 103 mmol/L (98-107); Glucose 122 mg/dL (74-106); Potassium 3.4 mmol/L (3.5-5.1); Sodium 134 mmol/L (136-145)
--- NOTE | 2022-02-21 07:14 | W.PM.PROGNOT ---
Date of Service Date of service: 02/21/22 Time of Service: 07:14 Assessment and Plan Assessment and plan (1) Acute cholecystitis due to biliary calculus: Status: Acute Assessment and plan: POD #5 s/p laproscopic cholecystectomy Low fat, soft diet. Tolerating well, with decreased appetite. Denies vomiting. Describes some nausea. Pain is well controlled. Will change BS checks to QACHS Will D/C drain prior to discharge Hopefully home today Subjective Subjective Interval history since last seen: Mercedes did well last night with some food. No Nausea or Vomiting. She even had a snak=ck later and was fine. Exam Resp Effort & Inspection: normal respiratory effort Auscultation: clear to auscultation bilaterally Cardio Rate: regular rate Rhythm: regular rhythm GI Palpation: soft, no hepatosplenomegaly and nontender Objective Last Vital Signs Temp 98.1 F 02/20/22 23:35 Pulse 77 02/20/22 23:35 Resp 16 02/20/22 23:35 BP 149/66 H 02/20/22 23:35 Pulse Ox 96 02/20/22 23:35 Laboratory Results - last 24 hr 02/20/22 02/20/22 02/21/22 09:45 09:45 05:45 WBC 8.74 9.47 RBC 3.60 L 3.32 L Hgb 10.9 L 10.2 L Hct 33.4 L 30.6 L MCV 93 92 MCH 30.3 30.7 MCHC 32.6 33.3 RDW 14.7 H 15.1 H Plt Count 260 269 MPV 9.5 10.6 Immature Gran % 0.6 Neutrophils % 69.9 Lymphocytes % 17.7 Monocytes % 8.2 Eosinophils % 3.3 Basophils % 0.3 Nucleated RBC % 0.0 Absolute Neutrophils 6.61 Absolute Lymphocytes 1.68 Absolute Monocytes 0.78 Absolute Eosinophils 0.31 Absolute Basophils 0.03 Sodium 131 L Potassium 3.1 L D Chloride 99 Carbon Dioxide 25.6 Anion Gap 6.4 BUN 9 Creatinine 1.1 H Est GFR (CKD-EPI 2020) 53.06 Glucose 193 H Calcium 8.8 Total Bilirubin 0.5 AST 101 H ALT 127 H Alkaline Phosphatase 201 H Total Protein 7.3 Albumin 2.6 L
[2022-02-21 07:27] VITALS: BP 121/74; PULSE 89; RESP 18; TEMP 36.4; O2SAT 96
[2022-02-21] MEDS: amLODIPine 2.5 MG TAB PO (09:36)
[2022-02-21] MEDS: Aspirin E.C. 81 MG TABEC PO (09:36)
[2022-02-21] MEDS: Atorvastatin 40 MG TAB PO (09:36)
[2022-02-21] MEDS: Venlafaxine 75 MG TAB PO (09:36)
[2022-02-21] MEDS: Pantoprazole 40 MG TABCR PO (09:36)
[2022-02-21] MEDS: Lisinopril 20 MG TAB PO (09:36)
[2022-02-21] MEDS: Polyethylene Glycol 3350 17 GM PACKET PO (09:36)
[2022-02-21 09:40] VITALS: BP 117/72; PULSE 95
[2022-02-21] MEDS: Sucralfate 1 GM TAB PO (10:48)
[2022-02-21] MEDS: Acetaminophen 325 MG TAB 650 MG PO (10:52)
--- NOTE | 2022-02-21 12:36 | W.PM.DS.N ---
Date of service: 02/21/22 Time of Service: 12:37 DS: Diagnosis Discharge Diagnosis (1) Acute cholecystitis due to biliary calculus: Status: Acute Asessment and Plan: Resolved after cholecystectomy -Follow-up in the office for routine postoperative care Discharge Plan Disposition Patient Disposition: Home Condition: Good Discharge Details Reason For Visit: Cholesystitis Admit Date/Time: 02/15/22 11:17 Admit Provider: Ernie Luong Attending Provider: Ernie Luong Primary Care Provider: Cornell Burger Hospital Course Hospital Course: 71 y/o female whom underwent a laproscopic cholecystecomy on 02/16/22 for acute on chronic cholecystitis. Following the procedure a BONNIE drain was left in place. Patient had serous drainage from this, which has decreased over the past 5 days. BONNIE drain was removed. Her pain has been well controlled. She is tolerating a soft, post-op diet. She has reported some nausea, which tends to occur more frequently in the morning and resolved without any medications. Patient has been afebrile and is eager to be d/c home. Patient states that her children and niece will be able to help her with meals and food. D/C home. Patient will need to follow up with the Surgical office in 2 weeks, for post op visit. Home Meds and New Rx's Prescriptions: New sucralfate 1 gram Tablet 1 g PO Q6H 30 Days Qty: 120 0RF pantoprazole 40 mg Tablet,Delayed Release (Dr/Ec) 40 mg PO DAILY@0730 60 Days Qty: 60 0RF Continued atorvastatin 40 mg Tablet 40 mg PO DAILY venlafaxine 75 mg Tablet 75 mg PO BID lisinopril 20 mg Tablet 20 mg PO DAILY amlodipine 2.5 mg Tablet 2.5 mg PO DAILY levothyroxine 50 mcg Tablet 50 mcg PO DAILY aspirin 81 mg Tablet 81 mg PO DAILY letrozole 2.5 mg Tablet 2.5 mg PO DAILY Januvia 50 mg Tablet 50 mg PO DAILY Invokana 300 mg Tablet 300 mg PO DAILY Discharge Instructions Instructions: Abdominal Pain (ED) Additional Instructions: Please continue with taking Pantoprazole and the Sucrafate daily, this is to help reduce your stomach acid. This has the potential to improve your nausea. We will follow up on how/if these are helping at your post-op visit. Discussed signs and symptoms of infection to include fevers, chills, sweats, redness, soreness or swelling in the area, new onset pain or new onset/change in drainage. Patient verbalized understanding and will call this office, their PCP or go to the ER if any of these symptoms occur. No swimming, soaking in bath tubs or hot tubs until the incision site is fully healed for this can significantly increase their risk of infection. Patient verbalized understanding of this. No heavy lifting, pushing or pulling. No strenuous bending or twisting. Stand Alone Forms: Nursing Discharge Form Referrals: Grzegorz Villalpando MD [ [facility] STAFF PHYSICIAN] - 03/07/22 11:45 am Activity:: Activity as Tolerated Equipment/Supplies:: No Equipment Needed Diet:: Soft, low fat diet Discharge Orders Discharge Orders: Discharge Order (Routine); Ordered 02/21/22 Ordered By: Uyen Cloud Discharge Data Discharge Date/Time-TO BE ENTERED AT DEPARTURE: 02/21/22 13:57 DS: Summary Time Spent with Patient providing and/or coordinating discharge services: Less than 30 minutes Status at Discharge Functional status at discharge: uses cane/walker Overall status at discharge: patient is progressing back to baseline Mental Status: mental status grossly normal Speech and Movement: speech and movement normal Mood: congruent mood Affect: normal affect Exam Const General: cooperative, healthy appearing and comfortable Orientation: alert, awake and oriented x3 Eyes General: appearance normal, both eyes and all related structures Conjunctivae: conjunctivae normal Sclera: sclerae normal Resp Effort & Inspection: normal respiratory effort, no audible wheezes and no cough Cardio Jugular venous pressure: no JVD Rate: regular rate GI Palpation: soft, no guarding and nontender Auscultation: normal bowel sounds Other: BONNIE drain was removed and the patient tolerated well. Skin General skin exam: normal turgor Neuro General: patient alert, patient awake and patient oriented x3 Cognition: normal cognition Extrem Right lower extremity: no edema Left lower extremity: no edema Psych Mental Status: mental status grossly normal Speech and Movement: speech and movement normal Mood: congruent mood Affect: normal affect DS: Data Vitals/I&O Vitals and I&O: Vital Signs Temperature 36.4 C L 02/21/22 07:27 Temperature Source Tympanic 02/21/22 07:27 Pulse 95 H 02/21/22 09:40 Pulse Rhythm Regular 02/21/22 05:25 Pulse 97 H 02/14/22 22:46 Respiratory Rate 18 02/21/22 07:27 Respiratory Effort Non-Labored 02/21/22 05:25 Respiratory Depth Normal 02/21/22 05:25 Respiratory Pattern Normal 02/21/22 05:25 Blood Pressure 117/72 02/21/22 09:40 Blood Pressure Mean 83 02/14/22 22:46 Blood Pressure Position Supine 02/14/22 18:06 Pulse Oximetry 96 02/21/22 07:27 Respiratory End-tidal CO2 36 02/16/22 11:07 Oxygen Delivery Method Room Air 02/21/22 07:27 Oxygen Flow Rate 0 02/21/22 07:27 Pain Level 0 02/21/22 11:45 Comment 02/21/22 11:45 Intake & Output 02/20/22 02/21/22 02/21/22 18:59 06:59 18:59 Intake Total 381 / 1476 1095 / 1476 683 / 683 Output Total 200 / 440 240 / 440 730 / 730 Balance 181 / 1036 855 / 1036 -47 / -47 Weight 64.864 kg Intake: IV 151 / 1246 1095 / 1246 233 / 233 Oral 180 / 180 450 / 450 Injectate 50 / 50 Right Mid Abdomen 50 / 50 Output: Drainage 40 / 40 30 / 30 Right Mid Abdomen 40 / 40 30 / 30 Urine 200 / 200 700 / 700 Emesis 200 / 200 Other: Urine Color Pale Yellow Urine Appearance Clear Clear Urine Odor Normal Comment in toliet missed hat Voiding Methods Toilet Toilet Toilet Data Completed and Pending Labs on day of discharge: Labs from last 24 hours 02/21/22 02/21/22 05:45 05:45 WBC 9.47 RBC 3.32 L Hgb 10.2 L Hct 30.6 L MCV 92 MCH 30.7 MCHC 33.3 RDW 15.1 H Plt Count 269 MPV 10.6 Immature Gran % 0.6 Neutrophils % 69.9 Lymphocytes % 17.7 Monocytes % 8.2 Eosinophils % 3.3 Basophils % 0.3 Nucleated RBC % 0.0 Absolute Neutrophils 6.61 Absolute Lymphocytes 1.68 Absolute Monocytes 0.78 Absolute Eosinophils 0.31 Absolute Basophils 0.03 Sodium 134 L Potassium 3.4 L Chloride 103 Carbon Dioxide 26.6 Anion Gap 4.4 BUN 6 L Creatinine 0.9 Est GFR (CKD-EPI 2020) 67.50 Glucose 122 H Calcium 8.6 Magnesium 2.0 PFSH All Active Problems (Updated 02/18/22 @ 12:47 by Ernie Luong MD) Acute cholecystitis due to biliary calculus (Acute) Medical History (Updated 02/18/22 @ 12:47 by Ernie Luong MD) Acalculous cholecystitis Biliary colic Social History Smoking/Tobacco Use Status: Never Smoking risk assessment performed?: Yes Alcohol Intake: never Drug use: Never Substance use type: does not use Do you feel safe at home: Yes
--- NOTE | 2022-02-21 19:14 | PDOC.CMDIS ---
- If Service Date Differs Date of service: 02/21/22 Time of Service: 19:14 LACE Index Scoring Tool - Questions: Length of Stay (in days): 4 - 6 Acuity (Admit via E.D.?): Yes E.D. Visits: 1 - Answers: Total Score: 8 Risk of Readmission: Low Risk Care Management Discharge Reason for Hospitalization: acute cholecystitis Discharge Plan: Mercedes returned home today with a resumption of home health services. She was transported via [facility] private vehicle, coordinated by . She will follow up with her PCP and discharge plan of care. Her neice checks in on her frequently. She is happy with the plan to return home. Patient/Family Education Needs: Review discharge instructions and limitations, discussion of self care needs including ask me three. Services Needed at Discharge: Home Health Care Services ( RN), Transportation ([facility])
== END 2022-02-21 13:57 | disposition home or self-care (01) | DRG 419 ==
LOC: ER 02-15 11:15 → MS 02-15 12:27
PROVIDERS: Emergency Medicine; Student in an Organized Health Care Education/Training Program; Surgery; Admitting Provider Student in an Organized Health Care Education/Training Program; Emergency Provider Emergency Medicine; Visit Provider Student in an Organized Health Care Education/Training Program
PROC: 0FT44ZZ Resection of Gallbladder, Percutaneous Endoscopic Approach (ICD-10-PCS; CPT 47563; principal; 2022-02-16 07:40)
DX: K80.12 Calculus of gallbladder with acute and chronic cholecystitis without obstruction (principal); K82.8 Other specified diseases of gallbladder; E11.9 Type 2 diabetes mellitus without complications; I10 Essential (primary) hypertension; F32.A Depression, unspecified; R11.2 Nausea with vomiting, unspecified; E87.6 Hypokalemia; R63.4 Abnormal weight loss; Z68.23 Body mass index [BMI] 23.0-23.9, adult
CPT/HCPCS: 47562; 36415; 80048; 80051; 80053; 80076; 83690; 85027; 85610; 85730; 87635; 96361; 96365; 99223; 99285; 74019; 74177; 76705; 81003; 83735; 84484; 85014; 85018; 85025; 85049; 88304; 93005; 93010; J0131; J0360; J1100; J1644; J2270; J2370; J2405; J2543; J3480; J3490

== ENCOUNTER 2022-02-23 10:28 | Emergency (ER) | payer MEDICARE, BC, SELFPAY ==
[2022-02-23 10:33] VITALS: BP 131/62; PULSE 101; RESP 18; TEMP 36.8; O2SAT 99
--- NOTE | 2022-02-23 11:00 | DI.CT_ITS ---
Exam(s) CT ABDOMEN PELVIS W EXAM: CT ABDOMEN PELVIS W CLINICAL HISTORY: recent cholecystectomy, nausea and vomiting. TECHNIQUE: Imaging Protocol: Axial computed tomography images with coronal and sagittal reformatted images were created and reviewed CONTRAST MATERIAL: Intravenous: Omnipaque 350 Contrast volume:100 ml Oral: / no COMPARISON: CT CT ABDOMEN PELVIS W from 02/14/2022 FINDINGS: ABDOMEN: Lung Bases: Normal where visualized. Small hiatal hernia. Liver: Normal density. No measurable mass. Gallbladder and biliary tract: Status post cholecystectomy. Minimal stranding in gallbladder fossa. No localized collection. No radiodense calculus or dilation. Pancreas: Normal density, no abnormal calcifications or inflammatory process. Spleen: Normal. Kidneys: Atrophic right kidney. No radiodense stones or obstructive uropathy. No masses seen. Adrenal glands: No masses seen. Abdominal Aorta: Abdominal portion non-dilated. Severe atherosclerotic changes. Soft tissues: Mild stranding in the right upper quadrant anterior subcutaneous fat related to recent surgery. No drainable collection. Air bubbles in the subcutaneous fat of the right groin region. F ew other air bubbles are seen. No drainable collection. PELVIS: Bladder: No gross wall thickening. No calculi.No focal mass. Bowel: No obstruction or bowel wall thickening. Appendix normal.Normal quantity of stool. Peritoneal cavity: No ascites, collection or mesenteric inflammatory response. Bones: Severe degenerative changes right hip. Stable appearance of compression fracture of L1. Stab le minimal compression fracture of T11. Reproductive organs: Within normal limits. Lymph nodes: Unremarkable. Impression: Status post cholecystectomy. Minimal stranding in the gallbladder fossa and subcutaneous fat consist ent with recent surgery. No abscess or fluid collection. Findings were called to Dr. Longoria of the emergency department. RADIATION DOSE DELIVERED: 919.57mGy.cm Total DLP DATA REPOSITORY: All CT scans at this facility are submitted to the National Radiology Data Registry (NRDR) Dose Index Registry (DIR) with the [employer] (ACR). RADIATION OPTIMIZATION: All CT scans at this facility use at least one of these dose optimization te chniques: automated exposure control; mA and/or kV adjustment per patient size (includes targeted exa ms where dose is matched to clinical indication); or iterative reconstruction.
--- NOTE | 2022-02-23 11:29 | ED.GENADUL_ITS ---
Discharge Plan Disposition Patient Disposition: Home Condition: Improving Discharge Details Chief Complaint: Nausea/Vomit/Diar Clinical Impression: Acute dehydration, Nausea Primary Care Provider: Cornell Burger ED Provider: Chidi Alfredo Home Meds and New Rx's Prescriptions: No Action atorvastatin 40 mg Tablet 40 mg PO DAILY venlafaxine 75 mg Tablet 75 mg PO BID lisinopril 20 mg Tablet 20 mg PO DAILY amlodipine 2.5 mg Tablet 2.5 mg PO DAILY levothyroxine 50 mcg Tablet 50 mcg PO DAILY aspirin 81 mg Tablet 81 mg PO DAILY letrozole 2.5 mg Tablet 2.5 mg PO DAILY Januvia 50 mg Tablet 50 mg PO DAILY Invokana 300 mg Tablet 300 mg PO DAILY sucralfate 1 gram Tablet 1 g PO Q6H 30 Days Qty: 120 0RF pantoprazole 40 mg Tablet,Delayed Release (Dr/Ec) 40 mg PO DAILY@0730 60 Days Qty: 60 0RF Discharge Instructions Instructions: Dehydration (ED), Acute Nausea and Vomiting (ED) Additional Instructions: Please help with your primary care physician. Please follow-up with surgical team as scheduled. Please return to the emergency department for any worsening symptoms Medical Decision Making 71-year-old female recent cholecystectomy presents with nausea and vomiting, no abdominal pain nondistended, surgical port sites clean dry intact, slight drying of oral mucosa and mild tachycardia on arrival. Patient had normal bowel movement earlier today. Less likely obstruction. Must consider postop complication such as infection versus dehydration versus ileus versus electrolyte abnormality. Patient currently asking for michael kt, will keep her n.p.o. until labs and imaging have returned. Will hydrate with crystalloid, antiemetics close reassess 15: 18 patient was comfortably no acute distress. Tolerating p.o. no vomiting. Likely mild dehydration, now resolving. Patient feels comfortable going home family at bedside given Sign Out No HPI General Date/Time Provider Initiated Documentation: 02/23/22 10:30 . HPI Narrative: 71-year-old female recent colostomy presents with recurrent nausea and vomiting. Denies abdominal pain. Had a normal bowel movement earlier today. Related Data Home Medications Medication Instructions Recorded Confirmed amlodipine 2.5 mg tablet 2.5 mg PO DAILY 02/14/22 02/14/22 aspirin 81 mg tablet 81 mg PO DAILY 02/14/22 02/14/22 atorvastatin 40 mg tablet 40 mg PO DAILY 02/14/22 02/14/22 canagliflozin 300 mg tablet 300 mg PO DAILY 02/14/22 02/14/22 (Invokana) letrozole 2.5 mg tablet 2.5 mg PO DAILY 02/14/22 02/14/22 levothyroxine 50 mcg tablet 50 mcg PO DAILY 02/14/22 02/14/22 lisinopril 20 mg tablet 20 mg PO DAILY 02/14/22 02/14/22 sitagliptin phosphate 50 mg tablet 50 mg PO DAILY 02/14/22 02/14/22 (Januvia) venlafaxine 75 mg tablet 75 mg PO BID 02/14/22 02/14/22 pantoprazole 40 mg tablet,delayed 40 mg PO DAILY@0730 60 days #60 02/21/22 release tabs sucralfate 1 gram tablet 1 g PO Q6H 30 days #120 tabs 02/21/22 Previous Rx's Medication Instructions Recorded pantoprazole 40 mg tablet,delayed 40 mg PO DAILY@0730 60 days #60 02/21/22 release tabs sucralfate 1 gram tablet 1 g PO Q6H 30 days #120 tabs 02/21/22 Allergies Allergy/AdvReac Type Severity Reaction Status Date / Time enviornmental Allergy Mild head Uncoded 02/14/22 21:03 congestion General Stated Complaint: Nausea/Vomit/Diar LELAND: 3 Review of Systems Narrative: Review of Systems Constitutional: negative Eyes: negative ENT: negative Cardiovascular: negative Respiratory: negative Gastrointestinal: Nausea vomiting : negative Musculoskeletal: negative Skin: negative Neurologic: negative Psych: negative PFSH All Active Problems (Updated 02/23/22 @ 15:20 by Chidi Alfredo MD) Acute dehydration (Acute) Nausea (Acute) Medical History (Updated 02/23/22 @ 15:20 by Chidi Alfredo MD) Acalculous cholecystitis Acute cholecystitis due to biliary calculus Biliary colic Social History Smoking/Tobacco Use Status: Never Smoking risk assessment performed?: Yes Alcohol Intake: never Drug use: Never Substance use type: does not use Do you feel safe at home: Yes Do you feel safe in your relationship?: Yes Exam Narrative Exam Narrative: Physical Examination General: alert, awake, cooperative, resting comfortably, no acute distress HEENT: normocephalic, atraumatic; PERRL, EOM intact, conjunctiva normal; no nasal discharge; moist mucous membranes, slight drying of oral mucosa, tolerating secretions Neck: supple, trachea midline; full ROM Chest: normal to inspection Respiratory: normal respiratory effort, speaking in full sentences, clear to auscultation, no wheezing, rales or rhonchi Cardiac: regular rate, regular rhythm, S1S2 intact, no murmurs rubs or gallops GI: abdomen soft, non-tender, non-distended; no palpable mass or hepatosplenomegaly; surgical port sites clean dry intact Skin: no lesions, rashes or trauma appreciated Neuro: AAOx3, normal speech, moving all extremities Psych: Appropriate mood and affect Course Vital Signs Vital signs: Vital Signs Temperature 36.8 C 02/23/22 10:33 Pulse 101 H 02/23/22 10:33 Respiratory Rate 18 02/23/22 10:33 Blood Pressure 131/62 02/23/22 10:33 Pulse Oximetry 99 02/23/22 10:33 Temperature 36.8 C 02/23/22 10:33 Temperature Source Temporal Artery Scan 02/23/22 10:33 Pulse 101 H 02/23/22 10:33 Respiratory Rate 18 02/23/22 10:33 Respiratory Effort 02/23/22 11:27 Blood Pressure 131/62 02/23/22 10:33 Blood Pressure Position Sitting 02/23/22 10:33 Pulse Oximetry 99 02/23/22 10:33 Oxygen Delivery Method Room Air 02/23/22 10:33 Oxygen Flow Rate 0 02/23/22 10:33
[2022-02-23 11:31] LABS: Abs Immature Grans 0.21 10^3/uL (0.0-0.06); Absolute Basophil Count 0.04 10^3/uL (0.0-0.2); Absolute Eosinophil Count 0.06 10^3/uL (0.0-0.7); Absolute Monocyte Count 0.73 10^3/uL (0.1-0.8); Absolute Neutrophil Count 10.35 10^3/uL (1.2-6.7); Basophils % 0.3; Eosinophils % 0.5; HCT 33.6 % (36.0-46.0); HGB 10.9 g/dL (11.2-15.7); Immature Grans % 1.7; Lymphocytes % 8.4; MCH 30.3 pg (27.0-33.0); MCHC 32.4 % (32.0-36.0); MCV 93 fL (80-95); MPV 9.9 fL (8.0-11.0); Monocytes % 5.9; Neutrophils % 83.2; Platelet Count 382 10^3/uL (130-400); RDW 15.8 % (11.7-14.6); RDW-SD 53.6 fL; WBC 12.44 10^3/uL (4.4-10.8)
[2022-02-23 11:35] LABS: Absolute Lymphocyte Count 1.04 10^3/uL (1.2-3.4)
[2022-02-23 11:49] LABS: ALT 77 U/L (14-59); AST 71 U/L (15-37); Albumin 2.7 g/dL (3.4-5.0); Alkaline Phosphatase 232 U/L (46-116); Anion Gap 9.1 mmol/L (3-11); BUN 15 mg/dL (7-18); Bilirubin, Total 0.5 mg/dL (0.2-1.0); CO2 23.9 mmol/L (21.0-32.0); CREATININE 1.3 mg/dL (0.55-1.02); Calcium 9.5 mg/dL (8.5-10.1); Chloride 99 mmol/L (98-107); Estimated GFR 43.42 (mL/min/1.73m2); Glucose 186 mg/dL (74-106); Lipase 224 U/L (73-393); Potassium 4.1 mmol/L (3.5-5.1); Sodium 132 mmol/L (136-145); Total Protein 7.9 g/dL (6.4-8.2)
[2022-02-23] MEDS: Lactated Ringers 1,000 ML 1000 ML IV (11:50)
[2022-02-23] MEDS: Ondansetron 4 MG/2 ML VIAL IVP (11:51)
[2022-02-23] MEDS: Omnipaque 350 MG/ML 100 ML BTL IJ (11:59)
[2022-02-23] MEDS: Normal Saline - Diluent 50 ML VIAL IV (12:00)
[2022-02-23 15:10] VITALS: BP 124/61; PULSE 87; RESP 20; TEMP 36.7; O2SAT 97
== END 2022-02-23 15:30 | disposition home or self-care (01) ==
PROVIDERS: Emergency Provider Emergency Medicine
DX: E86.0 Dehydration (principal); R00.0 Tachycardia, unspecified; Z90.49 Acquired absence of other specified parts of digestive tract; Z93.3 Colostomy status
CPT/HCPCS: 80053; 83690; 96361; 96374; 99285; 74177; 81003; 85025; 99284; J2405; J3490